=== PATIENT | female | born 1930 | race Caucasian/White ===

== ENCOUNTER 2018-02-11 10:42 | Inpatient (IN) ==
[2018-02-11] MEDS ORDERED: predniSONE 20 MG TABLET PO ONE (10:59)
[2018-02-11] MEDS ORDERED: Ipratropium/Albuterol Neb 3 ML IH ONE (10:59)
--- NOTE | 2018-02-11 11:01 | Emergency Department Note ---
Disposition Clinical Impression: NSTEMI (non-ST elevated myocardial infarction), CESAR (acute kidney injury) Dyspnea Qualifiers: Dyspnea type: unspecified Qualified Code(s): R06.00 - Dyspnea, unspecified Acute exacerbation of CHF (congestive heart failure) Qualifiers: Heart failure type: unspecified Qualified Code(s): I50.9 - Heart failure, unspecified Disposition: Admitted As Inpatient Condition: Undetermined Referrals: Marjorie Robles [Primary Care Provider] - Forms: ED Satisfaction Letter Time of Disposition: 14:54 SOB HPI - General Chief Complaint: ED Shortness of Breath/Dyspnea Stated Complaint: FELECIA Time Seen by Provider: 02/11/18 10:56 Source: patient Mode of arrival: private vehicle Limitations: no limitations Nursing Notes Reviewed: Yes Vital Signs Reviewed: Yes - History of Present Illness 88-year-old female with recent CVA arrives to the emergency department after being discharged from [facility] as a rehabilitation. The patient was doing well or able to ambulate without difficulty. She states that over the course the past 3 days she has been more short of breath, cough, upper respiratory infection like symptoms the point where she has been unable to move around easily. Patient has also made comments that she wanted to kill herself. She is maybe is comes to family members who performed care team. The patient denies any other complaints at this time. Family is very concerned because she is not able to eat very well. They have been substituting food with insurer. She has been able to swallow this and take her medicines. She denies any other complaints. - Related Data Home Medications Medication Instructions Recorded Confirmed Aspirin [Lo-Dose Aspirin EC] 81 mg PO DAILY 12/29/17 02/11/18 Atorvastatin Calcium [Lipitor] 20 mg PO QPM 12/29/17 02/11/18 Clopidogrel [Plavix] 75 mg PO DAILY 12/29/17 02/11/18 Ferrous Sulfate [Iron] 325 mg PO DAILY 12/29/17 02/11/18 Levothyroxine Sodium [Levoxyl] 50 mcg PO DAILY 12/29/17 02/11/18 Metoprolol [Lopressor] 25 mg PO BID 12/29/17 02/11/18 Omeprazole [PriLOSEC] 40 mg PO DAILY 12/29/17 02/11/18 Oxybutynin [Ditropan] 5 mg PO DAILY 12/29/17 02/11/18 Allergies Allergy/AdvReac Type Severity Reaction Status Date / Time Penicillins [PCN] Allergy Rash Verified 12/29/17 10:56 All systems ED: reviewed and negative except as stated. Constitutional: Reports: weakness. Denies: fever, chills ENT ED: Reports: congestion. Denies: ear pain, throat pain Cardiovascular: Reports: dyspnea on exertion. Denies: chest pain, orthopnea, edema, syncope Respiratory: Reports: cough, dyspnea, wheezes, sputum production. Denies: hemoptysis, stridor Gastrointestinal: Denies: abdominal pain, nausea, vomiting, diarrhea, constipation, hematemesis, melena, hematochezia Genitourinary: Reports: dysuria. Denies: urgency Musculoskeletal: Denies: back pain, neck pain, arthralgia, myalgia Integumentary: Denies: rash Neurological: Reports: weakness. Denies: headache, numbness, paresthesias, confusion, abnormal gait, vertigo Past Medical History - Past Medical History Attestation: Yes The following information was validated with the patient. Source: patient, obtained from family Medical history: Reports: CVA, GERD, hyperlipidemia, hypertension, myocardial infarction, thyroid disease Surgical history: Reports: non-contributory Psychiatric history: Reports: no psych history - Social History Smoking Status: Never smoker Smokeless Tobacco Status: No Alcohol use: Reports: none Drug use: Reports: none Physical Exam - General Limitations: no limitations General appearance: alert, in no apparent distress - Head Head exam: atraumatic, normocephalic, normal inspection - Eye Eye exam: Present: normal appearance, PERRL, EOMI - ENT ENT exam: normal exam, normal oropharynx, mucous membranes moist - Neck Neck exam: Present: normal inspection, full ROM, trachea midline - Chest Chest inspection: Present: normal inspection, symmetric chest wall rise - Respiratory Respiratory exam: Present: wheezes (bilaterally) - Cardiovascular Cardiovascular exam: Present: regular rate, normal rhythm, normal heart sounds - Abdominal Exam Abdominal exam: Present: soft, Non-Tender. Absent: tenderness, distention, guarding, rebound, rigidity - Extremities Exam Extremities exam: Present: normal inspection, full ROM. Absent: tenderness, pedal edema - Neurological Exam Neurological exam: Present: alert, oriented X3 - Skin Skin exam: Present: warm, dry, intact, normal color Course - Consultations Consultation #1: Spoke with Dr. Reno who had no further recommendations at this time. He did however with recommended that we admit the patient to the intensive is given the complex nature of what is going on currently. Time: 14:55 Vital Signs Temperature 98.9 F 02/11/18 10:59 Pulse Rate 101 02/11/18 10:59 Respiratory Rate 28 02/11/18 10:59 Blood Pressure 88/72 02/11/18 10:59 O2 Sat by Pulse Oximetry 94 02/11/18 10:59 Temperature 98.9 F 02/11/18 10:59 Pulse Rate 103 02/11/18 13:33 Respiratory Rate 20 02/11/18 13:33 Blood Pressure 113/63 02/11/18 13:33 O2 Sat by Pulse Oximetry 100 02/11/18 13:33 Oxygen Delivery Oxygen Delivery Bipap Shortness of Breath/Dyspnea - MDM Narrative Medical decision making narrative: Patient's x-ray demonstrates pulmonary edema bilaterally. She was placed on BiPAP. In addition the patient's troponin is elevated at 1.85. She was given aspirin started a heparin drip. She denies any black or bloody stools. The patient's EKG demonstrates no acute process. The patient was also administered multiple doses of IV fluid at 250 mL IVF to prevent fluid overload. Patient also had an CESAR as well. The patient was administered vancomycin and Zosyn. We will admit the patient to the hospital at this time. Respiratory status is improved after being placed on BiPAP. She is resting comfortably in the room speaking full sentences. Patient denies any other complaints at this time. Accepted by the assistant press operator offset, Dr. Villalta. - Lab Data Lab results reviewed: Yes I reviewed the patient's lab results. Result diagrams: 02/11/18 13:09 02/11/18 13:09 Lab Results 02/11/18 02/11/18 02/11/18 Range/Units 11:11 12:05 13:09 WBC 12.8 H (4.3-11.1) K/mcL RBC 3.81 L (3.82-4.97) M/mcL Hgb 11.1 L (11.5-15.4) g/dL Hct 34.3 L (35.3-44.9) % MCV 90.0 (83.0-100.0) fL MCH 29.1 (28.0-33.3) pg MCHC 32.4 (31.6-35.5) g/dL RDW 14.8 H (11.5-14.5) % Plt Count 251 (140-400) K/mcL MPV 10.8 (9.4-12.4) fL Immature Gran % 1.1 (0-4) % Seg Neutrophils % 85.0 % Lymphocytes % 7.2 % Monocytes % 6.5 % Eosinophils % 0.0 % Basophils % 0.2 % Neutrophils # 10.9 H (1.6-8.9) K/mcL Lymphocytes # 0.9 (0.6-4.6) K/mcL Monocytes # 0.8 (0.0-1.3) K/mcL Eosinophils # 0.0 (0.0-0.6) K/mcL Basophils # 0.0 (0.0-0.2) K/mcL Nucleated RBCs/100 WBC 0.4 H (0) /100 WBC PT (9.4-12.1) Seconds INR Sodium (136-145) mEq/L Potassium (3.5-5.1) mEq/L Chloride (98-107) mEq/L Carbon Dioxide (23-29) mEq/L BUN (8-23) mg/dL Creatinine (0.60-1.20) mg/dL Est GFR ( Amer) (> 60) Est GFR (Non-Af Amer) (> 60) BUN/Creatinine Ratio (6-26) Glucose (70-105) mg/dL POC Glucose 134 H (70-99) mg/dL Calculated Osmolality (280-300) Lactic Acid (0.5-2.2) mmol/L Calcium (8.6-10.3) mg/dL Troponin I (< 0.04) ng/mL Urine Color Yellow (Yellow) Urine Clarity Clear (Clear) Urine pH 6.0 (5.0-8.0) pH Units Ur Specific [place] 1.025 (1.010-1.025) Urine Protein 30 H (Neg-Trace) mg/dL Urine Glucose (UA) Normal (Normal) mg/dL Urine Ketones Negative (Negative) mg/dL Urine Blood Negative (Negative) Urine Nitrite Negative (Negative) Urine Bilirubin Negative (Negative) Urine Urobilinogen Normal (Normal) mg/dL Ur Leukocyte Esterase Negative (Negative) Urine Microscopic RBC 0-3 (0-3) per hpf Urine Microscopic WBC 3-5 H (0-3) per hpf Ur Squamous Epith Cells Many H (None-Few) per lpf Urine Bacteria None Seen (None-Few) per hpf Hyaline Casts None Seen (None-Few) per lpf Ur Culture Indicated? NO (NO) 02/11/18 02/11/18 02/11/18 Range/Units 13:09 13:09 13:09 WBC (4.3-11.1) K/mcL RBC (3.82-4.97) M/mcL Hgb (11.5-15.4) g/dL Hct (35.3-44.9) % MCV (83.0-100.0) fL MCH (28.0-33.3) pg MCHC (31.6-35.5) g/dL RDW (11.5-14.5) % Plt Count (140-400) K/mcL MPV (9.4-12.4) fL Immature Gran % (0-4) % Seg Neutrophils % % Lymphocytes % % Monocytes % % Eosinophils % % Basophils % % Neutrophils # (1.6-8.9) K/mcL Lymphocytes # (0.6-4.6) K/mcL Monocytes # (0.0-1.3) K/mcL Eosinophils # (0.0-0.6) K/mcL Basophils # (0.0-0.2) K/mcL Nucleated RBCs/100 WBC (0) /100 WBC PT 14.3 H (9.4-12.1) Seconds INR 1.3 Sodium 135 L (136-145) mEq/L Potassium 3.6 (3.5-5.1) mEq/L Chloride 102 (98-107) mEq/L Carbon Dioxide 18 L (23-29) mEq/L BUN 65 H (8-23) mg/dL Creatinine 1.41 H (0.60-1.20) mg/dL Est GFR ( Amer) 43 L (> 60) Est GFR (Non-Af Amer) 35 L (> 60) BUN/Creatinine Ratio 46 H (6-26) Glucose 127 H (70-105) mg/dL POC Glucose (70-99) mg/dL Calculated Osmolality 300 (280-300) Lactic Acid 3.4 H (0.5-2.2) mmol/L Calcium 9.3 (8.6-10.3) mg/dL Troponin I 1.85 H* (< 0.04) ng/mL Urine Color (Yellow) Urine Clarity (Clear) Urine pH (5.0-8.0) pH Units Ur Specific [place] (1.010-1.025) Urine Protein (Neg-Trace) mg/dL Urine Glucose (UA) (Normal) mg/dL Urine Ketones (Negative) mg/dL Urine Blood (Negative) Urine Nitrite (Negative) Urine Bilirubin (Negative) Urine Urobilinogen (Normal) mg/dL Ur Leukocyte Esterase (Negative) Urine Microscopic RBC (0-3) per hpf Urine Microscopic WBC (0-3) per hpf Ur Squamous Epith Cells (None-Few) per lpf Urine Bacteria (None-Few) per hpf Hyaline Casts (None-Few) per lpf Ur Culture Indicated? (NO) - Radiology Data Radiology results reviewed: Yes I reviewed the patient's radiology results. Chest X-Ray 02/11/18 10:57 IMPRESSION: 1. Interval worsening of bibasilar opacities, bilateral effusions, and pulmonary edema. 2. Low lung volumes. D/ / 02/11/2018 11:42:31 Natali Ortiz MD / [email or web address] Interpreting Provider: Natali Ortiz MD - EKG Data EKG attestation: Yes I reviewed and interpreted this EKG. EKG results narrative: Heart rate 89 beats for minute. Normal sinus rhythm. No ST elevation or ST depression noted. PVCs noted. EKG overall similar to EKG of from 12/29/2017.
[2018-02-11] MEDS ORDERED: 0.9 % Sodium Chloride 1,000 ML IVC ONE (11:15)
[2018-02-11] MEDS ORDERED: methylPREDNISolone 125 MG/2 ML VIAL IVP ONE (11:17)
[2018-02-11] MEDS ORDERED: 0.9 % Sodium Chloride 500 ML IVC ONE (11:26)
[2018-02-11] MEDS ORDERED: Cefepime HCl 1,000 MG in Water for inj. (sterile) 20 ML 10 ML IVP STA (11:30)
[2018-02-11] MEDS ORDERED: 0.9 % Sodium Chloride 250 ML IVC ONE ×2 (11:31→14:02)
--- NOTE | 2018-02-11 11:32 | Emergency Department Note ---
Disposition Clinical Impression: Dyspnea Disposition: Still a Patient Referrals: Marjorie Robles [Primary Care Provider] - Forms: ED Satisfaction Letter General Adult HPI - General Chief complaint: ED Shortness of Breath/Dyspnea Stated complaint: FELECIA Time Seen by Provider: 02/11/18 10:56 Source: patient Mode of arrival: private vehicle Limitations: no limitations Nursing Notes Reviewed: Yes Vital Signs Reviewed: Yes - History of Present Illness Pain Scale: 0 - Related Data Home Medications Medication Instructions Recorded Confirmed Aspirin [Lo-Dose Aspirin EC] 81 mg PO DAILY 12/29/17 02/11/18 Atorvastatin Calcium [Lipitor] 20 mg PO QPM 12/29/17 02/11/18 Clopidogrel [Plavix] 75 mg PO DAILY 12/29/17 02/11/18 Ferrous Sulfate [Iron] 325 mg PO DAILY 12/29/17 02/11/18 Levothyroxine Sodium [Levoxyl] 50 mcg PO DAILY 12/29/17 02/11/18 Metoprolol [Lopressor] 25 mg PO BID 12/29/17 02/11/18 Omeprazole [PriLOSEC] 40 mg PO DAILY 12/29/17 02/11/18 Oxybutynin [Ditropan] 5 mg PO DAILY 12/29/17 02/11/18 Allergies Allergy/AdvReac Type Severity Reaction Status Date / Time Penicillins [PCN] Allergy Rash Verified 12/29/17 10:56 Constitutional: Reports: weakness. Denies: fever, chills ENT ED: Reports: congestion. Denies: ear pain, throat pain Cardiovascular: Reports: dyspnea on exertion. Denies: chest pain, orthopnea, edema, syncope Respiratory: Reports: cough, dyspnea, wheezes, sputum production. Denies: hemoptysis, stridor Gastrointestinal: Denies: abdominal pain, nausea, vomiting, diarrhea, constipation, hematemesis, melena, hematochezia Genitourinary: Reports: dysuria. Denies: urgency Musculoskeletal: Denies: back pain, neck pain, arthralgia, myalgia Integumentary: Denies: rash Neurological: Reports: weakness. Denies: headache, numbness, paresthesias, confusion, abnormal gait, vertigo Past Medical History - Past Medical History Medical history: Reports: CVA, GERD, hyperlipidemia, hypertension, myocardial infarction, thyroid disease Surgical history: Reports: non-contributory Psychiatric history: Reports: no psych history - Social History Smoking Status: Never smoker Smokeless Tobacco Status: No Alcohol use: Reports: none Drug use: Reports: none Physical Exam - General Limitations: no limitations General appearance: alert, in no apparent distress Course Vital Signs Temperature 98.9 F 02/11/18 10:59 Pulse Rate 101 02/11/18 10:59 Respiratory Rate 28 02/11/18 10:59 Blood Pressure 88/72 02/11/18 10:59 O2 Sat by Pulse Oximetry 94 02/11/18 10:59 Temperature 98.9 F 02/11/18 10:59 Pulse Rate 103 02/11/18 13:33 Respiratory Rate 20 02/11/18 13:33 Blood Pressure 113/63 02/11/18 13:33 O2 Sat by Pulse Oximetry 100 02/11/18 13:33 Oxygen Delivery Oxygen Delivery Bipap Medical Decision Making - MDM Narrative Medical decision making narrative: This documentation is done with the assistance of Dragon dictation. Despite efforts made to ensure accuracy, there may be inaccuracies in campaign director or spelling and typographical errors. Patient seen and evaluated by Dr. Dickson and myself. Patient just L senior care for CVA symptoms. She was doing better. And now is coughing and history of fever. Possible healthcare acquired pneumonia. Family states they have also had some suicidal ideations while she was in health care facility. She is back home now. While medical social consultant speak with family. She will need medical admission and may be psychiatry consult. We will start her on antibiotic for healthcare acquired pneumonia. And finish workup. Chest X-Ray 02/11/18 10:57 IMPRESSION: 1. Interval worsening of bibasilar opacities, bilateral effusions, and pulmonary edema. 2. Low lung volumes. D/ / 02/11/2018 11:42:31 Natali Ortiz MD / [email or web address] Interpreting Provider: Natali Ortiz MD 1150 hrs. Patient does meet SIRS criteria. These could be effusions on her chest x-ray versus pneumonia. We will treat her as healthcare acquired pneumonia. We are and I have a midline placed due to poor vascular access. She will then need admitted. 1336 hrs.: Patient's CBC is back with mild leukocytosis. Chemistry still pending as there is a delay in getting her labs. We started her on treatment for pneumonia. She is stable at this time and will be admitted. Critical care time excluding any separately billable procedures is 20 minutes - Lab Data Result diagrams: 02/11/18 13:09 Lab Results 02/11/18 02/11/18 02/11/18 Range/Units 11:11 12:05 13:09 WBC 12.8 H (4.3-11.1) K/mcL RBC 3.81 L (3.82-4.97) M/mcL Hgb 11.1 L (11.5-15.4) g/dL Hct 34.3 L (35.3-44.9) % MCV 90.0 (83.0-100.0) fL MCH 29.1 (28.0-33.3) pg MCHC 32.4 (31.6-35.5) g/dL RDW 14.8 H (11.5-14.5) % Plt Count 251 (140-400) K/mcL MPV 10.8 (9.4-12.4) fL Immature Gran % 1.1 (0-4) % Seg Neutrophils % 85.0 % Lymphocytes % 7.2 % Monocytes % 6.5 % Eosinophils % 0.0 % Basophils % 0.2 % Neutrophils # 10.9 H (1.6-8.9) K/mcL Lymphocytes # 0.9 (0.6-4.6) K/mcL Monocytes # 0.8 (0.0-1.3) K/mcL Eosinophils # 0.0 (0.0-0.6) K/mcL Basophils # 0.0 (0.0-0.2) K/mcL Nucleated RBCs/100 WBC 0.4 H (0) /100 WBC POC Glucose 134 H (70-99) mg/dL Urine Color Yellow (Yellow) Urine Clarity Clear (Clear) Urine pH 6.0 (5.0-8.0) pH Units Ur Specific [place] 1.025 (1.010-1.025) Urine Protein 30 H (Neg-Trace) mg/dL Urine Glucose (UA) Normal (Normal) mg/dL Urine Ketones Negative (Negative) mg/dL Urine Blood Negative (Negative) Urine Nitrite Negative (Negative) Urine Bilirubin Negative (Negative) Urine Urobilinogen Normal (Normal) mg/dL Ur Leukocyte Esterase Negative (Negative) Urine Microscopic RBC 0-3 (0-3) per hpf Urine Microscopic WBC 3-5 H (0-3) per hpf Ur Squamous Epith Cells Many H (None-Few) per lpf Urine Bacteria None Seen (None-Few) per hpf Hyaline Casts None Seen (None-Few) per lpf Ur Culture Indicated? NO (NO) Attestation Statement - Attestation Attestation: I examined this patient and my medical decision-making was reviewed with the Resident Physician. I agree with the documented findings, disposition and treatment plan as described except to the extent set forth below. Patient seen and evaluated by Dr. Dickson and myself, agree with his evaluation and management plan, supervised the care the patient's stay.
[2018-02-11 12:27] LABS: Bilirubin,Urine Negative (Negative); Blood,Urine Negative (Negative); Color,Urine Yellow (Yellow); Glucose,Urine (UA) Normal (Normal); Ketones,Urine Negative (Negative); Leukocyte Esterase,Urine Negative (Negative); Nitrite,Urine Negative (Negative); Protein,Urine 30 mg/dL (Neg-Trace); Specific Gravity,Urine 1.025 (1.010-1.025); Urobilinogen,Urine Normal (Normal)
[2018-02-11 12:30] LABS: Bacteria,Urine None Seen per hpf (None-Few); Hyaline Casts,Urine None Seen per lpf (None-Few); RBC,Urine 0-3 per hpf (0-3); Squamous Epithelial Cell,Urine Many per lpf (None-Few)
[2018-02-11 12:31] LABS: Clarity,Urine Clear (Clear)
--- NOTE | 2018-02-11 13:29 | Emergency Department Note ---
Disposition Clinical Impression: Dyspnea Qualifiers: Dyspnea type: unspecified Qualified Code(s): R06.00 - Dyspnea, unspecified Disposition: Still a Patient Referrals: Marjorie Robles [Primary Care Provider] - Forms: ED Satisfaction Letter General Adult HPI - General Chief complaint: ED Shortness of Breath/Dyspnea Stated complaint: FELECIA Time Seen by Provider: 02/11/18 10:56 Source: patient Mode of arrival: private vehicle Limitations: no limitations Nursing Notes Reviewed: Yes Vital Signs Reviewed: Yes - History of Present Illness Pain Scale: 0 - Related Data Home Medications Medication Instructions Recorded Confirmed Aspirin [Lo-Dose Aspirin EC] 81 mg PO DAILY 12/29/17 02/11/18 Atorvastatin Calcium [Lipitor] 20 mg PO QPM 12/29/17 02/11/18 Clopidogrel [Plavix] 75 mg PO DAILY 12/29/17 02/11/18 Ferrous Sulfate [Iron] 325 mg PO DAILY 12/29/17 02/11/18 Levothyroxine Sodium [Levoxyl] 50 mcg PO DAILY 12/29/17 02/11/18 Metoprolol [Lopressor] 25 mg PO BID 12/29/17 02/11/18 Omeprazole [PriLOSEC] 40 mg PO DAILY 12/29/17 02/11/18 Oxybutynin [Ditropan] 5 mg PO DAILY 12/29/17 02/11/18 Allergies Allergy/AdvReac Type Severity Reaction Status Date / Time Penicillins [PCN] Allergy Rash Verified 12/29/17 10:56 Constitutional: Reports: weakness. Denies: fever, chills ENT ED: Reports: congestion. Denies: ear pain, throat pain Cardiovascular: Reports: dyspnea on exertion. Denies: chest pain, orthopnea, edema, syncope Respiratory: Reports: cough, dyspnea, wheezes, sputum production. Denies: hemoptysis, stridor Gastrointestinal: Denies: abdominal pain, nausea, vomiting, diarrhea, constipation, hematemesis, melena, hematochezia Genitourinary: Reports: dysuria. Denies: urgency Musculoskeletal: Denies: back pain, neck pain, arthralgia, myalgia Integumentary: Denies: rash Neurological: Reports: weakness. Denies: headache, numbness, paresthesias, confusion, abnormal gait, vertigo Past Medical History - Past Medical History Medical history: Reports: CVA, GERD, hyperlipidemia, hypertension, myocardial infarction, thyroid disease Surgical history: Reports: non-contributory Psychiatric history: Reports: no psych history - Social History Smoking Status: Never smoker Smokeless Tobacco Status: No Alcohol use: Reports: none Drug use: Reports: none Physical Exam - General Limitations: no limitations General appearance: alert, in no apparent distress Course Vital Signs Temperature 98.9 F 02/11/18 10:59 Pulse Rate 101 02/11/18 10:59 Respiratory Rate 28 02/11/18 10:59 Blood Pressure 88/72 02/11/18 10:59 O2 Sat by Pulse Oximetry 94 02/11/18 10:59 Temperature 98.9 F 02/11/18 10:59 Pulse Rate 103 02/11/18 13:33 Respiratory Rate 20 02/11/18 13:33 Blood Pressure 113/63 02/11/18 13:33 O2 Sat by Pulse Oximetry 100 02/11/18 13:33 Oxygen Delivery Oxygen Delivery Bipap Procedures - Ultrasound-Other Narrative: US STUDY: Cardiac ED limited INDICATION: Shortness of breath Discussion of risks, benefits and alternatives with pateint and concsent verbally obtained prior to study. Time out Performed. FINDINGS: A parasternal long axis view was obtained, this demonstrated mild to moderate decrease in cardiac contractility, with the anterior leaflet minimally contacting the septal wall and the mitral valve, there appears to be some evidence of global dyskinesis, no evidence of right ventricular strain. IMPRESSON: Possible decreased cardiac contractility and cardiac function, no evidence of pericardial effusion, recommend formal ultrasound study Performed and Interpretted by myself Dr Acuna Resident, Attending Physician Dr. Trent Medical Decision Making - [facility] Narrative Medical decision making narrative: Ultrasound procedure note only, please see resident/AICHA/attending note for history, ROS, physical exam, medical decision making and plan. - Lab Data Result diagrams: 02/11/18 13:09 Lab Results 02/11/18 02/11/18 02/11/18 Range/Units 11:11 12:05 13:09 WBC 12.8 H (4.3-11.1) K/mcL RBC 3.81 L (3.82-4.97) M/mcL Hgb 11.1 L (11.5-15.4) g/dL Hct 34.3 L (35.3-44.9) % MCV 90.0 (83.0-100.0) fL MCH 29.1 (28.0-33.3) pg MCHC 32.4 (31.6-35.5) g/dL RDW 14.8 H (11.5-14.5) % Plt Count 251 (140-400) K/mcL MPV 10.8 (9.4-12.4) fL Immature Gran % 1.1 (0-4) % Seg Neutrophils % 85.0 % Lymphocytes % 7.2 % Monocytes % 6.5 % Eosinophils % 0.0 % Basophils % 0.2 % Neutrophils # 10.9 H (1.6-8.9) K/mcL Lymphocytes # 0.9 (0.6-4.6) K/mcL Monocytes # 0.8 (0.0-1.3) K/mcL Eosinophils # 0.0 (0.0-0.6) K/mcL Basophils # 0.0 (0.0-0.2) K/mcL Nucleated RBCs/100 WBC 0.4 H (0) /100 WBC POC Glucose 134 H (70-99) mg/dL Urine Color Yellow (Yellow) Urine Clarity Clear (Clear) Urine pH 6.0 (5.0-8.0) pH Units Ur Specific [place] 1.025 (1.010-1.025) Urine Protein 30 H (Neg-Trace) mg/dL Urine Glucose (UA) Normal (Normal) mg/dL Urine Ketones Negative (Negative) mg/dL Urine Blood Negative (Negative) Urine Nitrite Negative (Negative) Urine Bilirubin Negative (Negative) Urine Urobilinogen Normal (Normal) mg/dL Ur Leukocyte Esterase Negative (Negative) Urine Microscopic RBC 0-3 (0-3) per hpf Urine Microscopic WBC 3-5 H (0-3) per hpf Ur Squamous Epith Cells Many H (None-Few) per lpf Urine Bacteria None Seen (None-Few) per hpf Hyaline Casts None Seen (None-Few) per lpf Ur Culture Indicated? NO (NO)
[2018-02-11 13:33] LABS: Basophils % 0.2 %; Hematocrit 34.3 % (35.3-44.9); Hemoglobin 11.1 g/dL (11.5-15.4); Immature Granulocytes % 1.1 % (0-4); Lymphocytes # 0.9 K/mcL (0.6-4.6); Lymphocytes % 7.2 %; Mean Corpuscular HGB Conc 32.4 g/dL (31.6-35.5); Mean Corpuscular Hemoglobin 29.1 pg (28.0-33.3); Mean Platelet Volume 10.8 fL (9.4-12.4); Monocytes # 0.8 K/mcL (0.0-1.3); Monocytes % 6.5 %; Neutrophils # 10.9 K/mcL (1.6-8.9); Nucleated Red Blood Cells 0.4 /100 WBC (0); Platelet Count 251 K/mcL (140-400); Red Blood Count 3.81 M/mcL (3.82-4.97); Red Cell Distribution Width 14.8 % (11.5-14.5)
[2018-02-11 13:50] LABS: Calcium 9.3 mg/dL (8.6-10.3); Potassium 3.6 mEq/L (3.5-5.1)
[2018-02-11 13:52] LABS: Troponin I 1.85 ng/mL (< 0.04)
[2018-02-11] MEDS ORDERED: *HR* Heparin 5,000 UNIT/ML VIAL IVP ONE (14:02)
[2018-02-11] MEDS ORDERED: *HR* Heparin 5,000 UNIT/ML VIAL IVP PRN ×2 (14:02)
[2018-02-11] MEDS ORDERED: Aspirin 325 MG TABLET PO ONE (14:02)
[2018-02-11] MEDS ORDERED: Heparin 25,000 UNIT/500 ML D5W 25,000 UNIT/500 ML BAG IVC SCH (14:15)
--- NOTE | 2018-02-11 14:50 | Pulmonology History & Physical ---
<Chilo Villalta M - Last Filed: 02/11/18 16:07> Date of Encounter: 02/11/18 History of Present Illness HPI: Ms. Valencia is a 88 year old female Medications and Allergies Aspirin [Lo-Dose Aspirin EC] 81 mg PO DAILY 12/29/17 [History] Atorvastatin Calcium [Lipitor] 20 mg PO QPM 12/29/17 [History] Clopidogrel [Plavix] 75 mg PO DAILY 12/29/17 [History] Ferrous Sulfate [Iron] 325 mg PO DAILY 12/29/17 [History] Levothyroxine Sodium [Levoxyl] 50 mcg PO DAILY 12/29/17 [History] Metoprolol [Lopressor] 25 mg PO BID 12/29/17 [History] Omeprazole [PriLOSEC] 40 mg PO DAILY 12/29/17 [History] Oxybutynin [Ditropan] 5 mg PO DAILY 12/29/17 [History] 3 Allergy/AdvReac Type Severity Reaction Status Date / Time Penicillins [PCN] Allergy Rash Verified 12/29/17 10:56 All Systems: The remainder of the systems were reviewed and are negative Physical Examination Vital Signs: Vital Signs, Last 4 Hours Pulse Resp BP Pulse Ox 02/11/18 13:33 103 20 113/63 100 Results - Laboratory Findings CBC and BMP: 02/11/18 13:09 02/11/18 13:09 PT/INR, D-dimer PT 14.3 Seconds (9.4-12.1) H 02/11/18 13:09 Abnormal lab findings: Abnormal lab results WBC 12.8 K/mcL (4.3-11.1) H 02/11/18 13:09 RBC 3.81 M/mcL (3.82-4.97) L 02/11/18 13:09 Hgb 11.1 g/dL (11.5-15.4) L 02/11/18 13:09 Hct 34.3 % (35.3-44.9) L 02/11/18 13:09 RDW 14.8 % (11.5-14.5) H 02/11/18 13:09 Neutrophils # 10.9 K/mcL (1.6-8.9) H 02/11/18 13:09 Nucleated RBCs/100 WBC 0.4 /100 WBC (0) H 02/11/18 13:09 PT 14.3 Seconds (9.4-12.1) H 02/11/18 13:09 APTT 21.6 Seconds (26.0-36.0) L 02/11/18 13:09 Sodium 135 mEq/L (136-145) L 02/11/18 13:09 Carbon Dioxide 18 mEq/L (23-29) L 02/11/18 13:09 BUN 65 mg/dL (8-23) H 02/11/18 13:09 Creatinine 1.41 mg/dL (0.60-1.20) H 02/11/18 13:09 Est GFR ( Amer) 43 (> 60) L 02/11/18 13:09 Est GFR (Non-Af Amer) 35 (> 60) L 02/11/18 13:09 BUN/Creatinine Ratio 46 (6-26) H 02/11/18 13:09 Glucose 127 mg/dL (70-105) H 02/11/18 13:09 POC Glucose 134 mg/dL (70-99) H 02/11/18 11:11 Lactic Acid 4.4 mmol/L (0.5-2.2) H* 02/11/18 15:20 Troponin I 1.85 ng/mL (< 0.04) H* 02/11/18 13:09 Urine Protein 30 mg/dL (Neg-Trace) H 02/11/18 12:05 Urine Microscopic WBC 3-5 per hpf (0-3) H 02/11/18 12:05 Ur Squamous Epith Cells Many per lpf (None-Few) H 02/11/18 12:05 - Attending Attestation I examined this patient and my medical decision-making was reviewed with the Resident Physician. I agree with the documented findings, disposition and treatment plan as described except to the extent set forth below. Patient seen and examined. I was called by emergency room physician to evaluate this patient in the emergency room and admitted her to ICU. Patient's family at the bedside. Labs, radiology, chart personally reviewed. 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 Cardiovascular: Non-ST elevation MO and cardiology to see patient. Patient has multiple comorbidities. GI: Nutrition per dietary and GI prophylaxis per routine. Patient at risk of aspiration. Heme: DVT prophylaxis per routine ID: Continue antibiotics and plan to de-escalation Renal; urine out put and renal funtion reviewed Endorcine: blood glucose is monitored Lines: all lines checked and no evidence of infections Skin: skin care to prevent pressure ulcers per nursing routine care Patient has multiple comorbidities and her condition could deteriorate and she will be admitted to ICU. I spent 35 min of Critical Care time with this patient. It involved decision making of high complexity to assess, manipulate, and support vital organ system failure and/or to prevent further life threatening deterioration of the patient' s condition. The time involved in the performance of separately reportable procedures was not counted toward critical care time. <Anjel Bell - Last Filed: 02/11/18 16:20> Date of Encounter: 02/11/18 Time of Encounter: 14:51 Assessment and Plan (1) HCAP (healthcare-associated pneumonia) Current visit: Yes Status: Acute Clinical pneumonia as evidenced by cough, recent healthcare facility admission, leukocytosis, respiratory failure requiring BiPAP. Chest x-ray with pulmonary edema however potential superimposed infiltrate is also a possibility. She was recently at a senior living facility for rehabilitation. We will treat broad-spectrum vancomycin and cefepime. MRSA surveillance screen ordered. Influenza swab ordered. (2) Sepsis Current visit: Yes Status: Acute Patient meets 3 SIRS criteria upon arrival given tachycardia, tachypnea and leukocytosis. Etiology suspected to be respiratory in nature. Chest x-ray with pulmonary edema however unable to exclude superimposed infiltrate. Initial lactate of 3.4 which has worsened to 4.4 Received a total 1 L normal saline in the emergency department. An additional 25 g of albumin was added. She is normotensive with normal cap refill. We will hold on 30 mL/kg bolus as she is also suffering from pulmonary edema requiring noninvasive positive pressure ventilation. Continue broad-spectrum antibiotic coverage with vancomycin and cefepime. Influenza swab ordered. Qualifiers: Sepsis type: sepsis due to unspecified organism Qualified Code(s): A41.9 - Sepsis, unspecified organism (3) NSTEMI (non-ST elevated myocardial infarction) Current visit: Yes Status: Acute Initial presentation with troponin of 1.85 in the setting of renal insufficiency. EKG demonstrates a left bundle branch block which is chronic for the patient. Prior troponin levels have been normal. Previous echo earlier this year reviewed with a preserved ejection fraction of 65% with mild left ventricular diastolic dysfunction. Cardiology consultation ordered by the emergency department. Plan to continue trending troponins Heparin GTT ordered by emergency department (4) Acute respiratory failure Current visit: Yes Status: Acute Initial tachypnea requiring noninvasive positive pressure ventilation with improvement of her symptoms. Likely secondary to acute CHF exacerbation with superimposed respiratory illness. On low support settings of BiPAP 10/5 at 30% FiO2. Continue as tolerated. Qualifiers: Respiratory failure complication: unspecified whether with hypoxia or hypercapnia Qualified Code(s): J96.00 - Acute respiratory failure, unspecified whether with hypoxia or hypercapnia (5) Generalized weakness Current visit: No Status: Acute Multifactorial given her acute infectious process as well as pulmonary edema and prior CVA. (6) Lactic acidosis Current visit: Yes Status: Acute Initial lactic acid of 3.4 on arrival which worsened to 4.4 prior to admission. Suspect type a lactic acidosis in the setting of infectious etiology with initial hypotension upon arrival Patient responded well to initial IV fluids and was given 25 g of 25% albumin as well. We will continue to trend lactic acids. (7) Diabetes mellitus Current visit: No Status: Chronic Sliding scale insulin regimen with goal blood glucose less than 180. 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 (9) DVT prophylaxis Current visit: No Status: Acute Currently on heparin infusion History of Present Illness Chief complaint: NSTEMI HPI: Ms. Valencia is a 88 year old female with a prior medical history of CVA roughly 1 month ago, CAD status post stent roughly 10 years ago, diabetes who presented to the emergency department on 02/11/18 with a chief complaint of dyspnea. Symptoms progressing over the last 2-3 days. She was just recently discharged from a senior living facility after rehabilitation from her stroke. She was noted to be mildly tachycardic and hypotensive upon arrival. Chest x-ray demonstrates pulmonary edema. The patient was briefly placed on BiPAP with improvement of her symptoms however requested to be off for break. She reports some intermittent chest pain worse with breathing. He reports that she has had a cough ever since leaving her nursing facility last . No nausea vomiting or diarrhea. No sick contacts. Of note she was admitted roughly 1 month ago where she had a neurologic workup for stroke found to have a lacunar infarct on brain MRI. She was also evaluated by cardiology during that visit for bradycardia. She had an echo at that time showing a preserved ejection fraction of 65% with mild left ventricular diastolic dysfunction. At the time of evaluation she is on BiPAP at 10/5 with an FiO2 of 30%. Prior to evaluation cardiology was consulted and the patient is currently in line to start a heparin infusion once her coagulation studies are back. She did receive multiple 250ml normal saline boluses for initial hypotension. Although she meets sepsis criteria with concern for respiratory etiology she did not receive 30/kg as she is responsive to initial fluids and has no evidence of shock. Patient to be admitted to the ICU for close hemodynamic monitoring due to multiple comorbidities. I had a discussion with the patient and family regarding CODE STATUS. She has remarked that she is tired of being sick and would wants to let go however she does not seem to fully understand CODE STATUS and at this time is full code pending family discussion as well as palliative care consultation. Past Med Surg Social Fam HX - Past Medical History Attestation: Yes The following information was validated with the patient. Source: patient Medical history: CVA, GERD, hyperlipidemia, hypertension, myocardial infarction , thyroid disease Psychiatric history: no psych history - Past Surgical History Surgical History: non-contributory - Social History Smoking Status: Never smoker Smokeless Tobacco Status: No Alcohol use: none Drug use: none - Family History Mother Living Status: Hx Family Cardiac Disorders: Yes All Systems: The remainder of the systems were reviewed and are negative - Constitutional Constitutional: weakness, no fever(s) - Cardiovascular Cardiovascular: chest pain (Intermittently), dyspnea, dyspnea on exertion - Respiratory Respiratory: cough, dyspnea, dyspnea on exertion - Gastrointestinal Gastrointestinal: no abdominal pain, no nausea, no vomiting - Musculoskeletal Musculoskeletal: weakness Physical Examination Vital Signs: Vital Signs, Last 4 Hours Temp Pulse Resp BP Pulse Ox 02/11/18 13:33 103 20 113/63 100 02/11/18 11:48 34 99 02/11/18 11:21 26 106/82 99 02/11/18 11:18 22 94 02/11/18 10:59 98.9 F 101 28 88/72 94 General appearance: other (Mild distress on BiPAP.) Eyes: nonicteric ENT: other (BiPAP in place) Neck: supple Effort: mildly labored, other (Currently on BiPAP 10/5 at 30% FiO2 with coarse bilateral breath sounds with diminishment in the bases) Cardiovascular: regular rate and rhythm Gastrointestinal: soft, non-tender, non-distended Integumentary: normal Extremities: no cyanosis, edema (Minimal lower extremity edema), other ( Dorsalis pedis pulses 1/4. Cap Refill time less than 3 seconds.) Musculoskeletal: no deformities normal mental status, non-focal exam mood appropriate Results - Laboratory Findings CBC and BMP: 02/11/18 13:09 02/11/18 13:09 Abnormal lab findings: Abnormal lab results WBC 12.8 K/mcL (4.3-11.1) H 02/11/18 13:09 RBC 3.81 M/mcL (3.82-4.97) L 02/11/18 13:09 Hgb 11.1 g/dL (11.5-15.4) L 02/11/18 13:09 Hct 34.3 % (35.3-44.9) L 02/11/18 13:09 RDW 14.8 % (11.5-14.5) H 02/11/18 13:09 Neutrophils # 10.9 K/mcL (1.6-8.9) H 02/11/18 13:09 Nucleated RBCs/100 WBC 0.4 /100 WBC (0) H 02/11/18 13:09 Sodium 135 mEq/L (136-145) L 02/11/18 13:09 Carbon Dioxide 18 mEq/L (23-29) L 02/11/18 13:09 BUN 65 mg/dL (8-23) H 04/11/18 13:09 Creatinine 1.41 mg/dL (0.60-1.20) H 02/11/18 13:09 Est GFR ( Amer) 43 (> 60) L 02/11/18 13:09 Est GFR (Non-Af Amer) 35 (> 60) L 02/11/18 13:09 BUN/Creatinine Ratio 46 (6-26) H 02/11/18 13:09 Glucose 127 mg/dL (70-105) H 02/11/18 13:09 POC Glucose 134 mg/dL (70-99) H 02/11/18 11:11 Lactic Acid 3.4 mmol/L (0.5-2.2) H 02/11/18 13:09 Troponin I 1.85 ng/mL (< 0.04) H* 02/11/18 13:09 Urine Protein 30 mg/dL (Neg-Trace) H 02/11/18 12:05 Urine Microscopic WBC 3-5 per hpf (0-3) H 02/11/18 12:05 Ur Squamous Epith Cells Many per lpf (None-Few) H 02/11/18 12:05 - Diagnostic Findings Chest x-ray: report reviewed, image reviewed
[2018-02-11 14:52] LABS: INR 1.3; Prothrombin Time 14.3 Seconds (9.4-12.1)
[2018-02-11 14:55] LABS: Activated Partial Thrombo Time 21.6 Seconds (26.0-36.0)
[2018-02-11] MEDS ORDERED: Albumin 25% 25gram/100mL 25 GM/100 ML IV.SOLN IVPB ONE (15:59)
[2018-02-11] MEDS ORDERED: Naloxone 0.4 MG/ML INJ IVP PRN (16:04)
[2018-02-11] MEDS: Famotidine 20 MG/2 ML VIAL IVP SCH (21:59)
[2018-02-11] MEDS: Cefepime HCl 1,000 MG in Water for inj. (sterile) 20 ML 10 ML IVP SCH (23:37)
[2018-02-12 01:36] LABS: Basophils % 0.1 %; Hematocrit 32.6 % (35.3-44.9); Hemoglobin 10.3 g/dL (11.5-15.4); Immature Granulocytes % 0.7 % (0-4); Lymphocytes # 0.6 K/mcL (0.6-4.6); Lymphocytes % 6.1 %; Mean Corpuscular HGB Conc 31.6 g/dL (31.6-35.5); Mean Corpuscular Hemoglobin 29.1 pg (28.0-33.3); Mean Corpuscular Volume 92.1 fL (83.0-100.0); Mean Platelet Volume 10.6 fL (9.4-12.4); Monocytes # 0.2 K/mcL (0.0-1.3); Monocytes % 2.2 %; Neutrophils # 9.3 K/mcL (1.6-8.9); Nucleated Red Blood Cells 0.3 /100 WBC (0); Platelet Count 204 K/mcL (140-400); Red Blood Count 3.54 M/mcL (3.82-4.97); Red Cell Distribution Width 14.7 % (11.5-14.5); Segmented Neutrophils % 90.9 %
[2018-02-12 02:03] LABS: Calcium 8.7 mg/dL (8.6-10.3); Magnesium 2.2 mg/dL (1.6-2.6); Phosphorous 4.9 mg/dL (2.7-4.5); Potassium 3.5 mEq/L (3.5-5.1)
[2018-02-12 04:42] LABS: Activated Partial Thrombo Time 125.8 Seconds (26.0-36.0)
[2018-02-12 04:47] LABS: Heparin anti-factor XA UFH 0.72 IU/mL (0.30-0.70)
[2018-02-12] MEDS: Famotidine 20 MG/2 ML VIAL IVP SCH (05:01)
--- NOTE | 2018-02-12 06:52 | Pulmonology Progress Note ---
<PawanChilo M - Last Filed: 02/12/18 09:07> Date of Encounter: 02/12/18 Objective PUL Vital signs: Last Vital Signs Temp 97.5 F L 02/12/18 07:00 Pulse 89 02/12/18 08:00 Resp 22 02/12/18 08:00 BP 104/78 02/12/18 08:00 Pulse Ox 97 02/12/18 08:00 Results - Laboratory Findings CBC and BMP: 02/12/18 01:29 02/12/18 01:29 PT/INR, D-dimer PT 14.3 Seconds (9.4-12.1) H 02/11/18 13:09 Abnormal lab findings: Abnormal lab results RBC 3.54 M/mcL (3.82-4.97) L 02/12/18 01:29 Hgb 10.3 g/dL (11.5-15.4) L 02/12/18 01:29 Hct 32.6 % (35.3-44.9) L 02/12/18 01: RDW 14.7 % (11.5-14.5) H 02/12/18 01:29 Neutrophils # 9.3 K/mcL (1.6-8.9) H 02/12/18 01:29 Nucleated RBCs/100 WBC 0.3 /100 WBC (0) H 02/12/18 01:29 PT 14.3 Seconds (9.4-12.1) H 02/11/18 13:09 APTT 125.8 Seconds (26.0-36.0) H* 02/12/18 04:10 Heparin Anti-Xa, Unfract 0.72 IU/mL (0.30-0.70) H 02/12/18 04:10 Chloride 108 mEq/L (98-107) H 02/12/18 01:29 Carbon Dioxide 15 mEq/L (23-29) L 02/12/18 01:29 BUN 64 mg/dL (8-23) H 02/12/18 01:29 Creatinine 1.24 mg/dL (0.60-1.20) H 02/12/18 01:29 Est GFR ( Amer) 50 (> 60) L 02/12/18 01:29 Est GFR (Non-Af Amer) 41 (> 60) L 02/12/18 01:29 BUN/Creatinine Ratio 52 (6-26) H 02/12/18 01:29 Glucose 180 mg/dL (70-105) H 02/12/18 01:29 POC Glucose 180 mg/dL (70-99) H 02/11/18 21:34 Calculated Osmolality 307 (280-300) H 02/12/18 01:29 Lactic Acid 2.3 mmol/L (0.5-2.2) H 02/12/18 08:26 Phosphorus 4.9 mg/dL (2.7-4.5) H 02/12/18 01:29 Troponin I 1.64 ng/mL (< 0.04) H* 02/12/18 01:29 Urine Protein 30 mg/dL (Neg-Trace) H 02/11/18 12:05 Urine Microscopic WBC 3-5 per hpf (0-3) H 02/11/18 12:05 Ur Squamous Epith Cells Many per lpf (None-Few) H 02/11/18 12:05 - Microbiology Findings Microbiology Findings: Microbiology, Last 48 Hours 02/11/18 21:46 Influenza Types A,B Antigen (MAHESH) - Final Nasopharyngeal - Clinical Findings Intake & Output: Intake & Output 02/11/18 02/12/18 02/12/18 23:59 07:59 15:59 Intake Total 213 / 213 72 / 72 Output Total 1200 / 1200 100 / 100 0 / 0 Balance -987 / -987 -28 / -28 0 / 0 Weight 56.2 kg 56.2 kg Consult Discharge Plan - Plan Referrals: Marjorie Robles [Primary Care Provider] - - Attending Attestation I examined this patient and my medical decision-making was reviewed with the Resident Physician. I agree with the documented findings, disposition and treatment plan as described except to the extent set forth below. Patient seen and examined. Labs, radiology, chart personally reviewed. 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 Speech for swallowing evaluation Heme: DVT prophylaxis per routine ID: Continue antibiotics and plan to de-escalation Renal; urine out put and renal funtion reviewed Endorcine: blood glucose is monitored Lines: all lines checked and no evidence of infections Skin: skin care to prevent pressure ulcers per nursing routine care Patient with multiple comorbidities and can be transferred to [address]. <Anjel Bell - Last Filed: 02/12/18 10:35> Date of Encounter: 02/12/18 Time of Encounter: 07:38 Assessment and Plan (1) HCAP (healthcare-associated pneumonia) Current Visit: Yes Status: Acute Clinical pneumonia as evidenced by cough, recent healthcare facility admission, leukocytosis, respiratory failure requiring BiPAP. Chest x-ray with pulmonary edema however potential superimposed infiltrate is also a possibility. She was recently at a alf facility for rehabilitation. We will treat broad-spectrum vancomycin and cefepime. MRSA surveillance screen negative Influenza screen negative (2) Sepsis Current Visit: Yes Status: Acute Patient met 3 SIRS criteria upon arrival given tachycardia, tachypnea and leukocytosis. Etiology suspected to be respiratory in nature. Chest x-ray with pulmonary edema however unable to exclude superimposed infiltrate. Initial lactic acidosis has resolved Continue broad-spectrum antibiotic coverage with vancomycin and cefepime. Influenza negative. MRSA surveillance negative. Qualifiers: Sepsis type: sepsis due to unspecified organism Qualified Code(s): A41.9 - Sepsis, unspecified organism (3) NSTEMI (non-ST elevated myocardial infarction) Current Visit: Yes Status: Acute Initial presentation with troponin of 1.85 in the setting of renal insufficiency. Repeat troponins downtrending 1.60, 1.64 EKG demonstrates a left bundle branch block which is chronic for the patient. Prior troponin levels have been normal. Previous echo earlier this year reviewed with a preserved ejection fraction of 65% with mild left ventricular diastolic dysfunction. Cardiology consultation ordered by the emergency department. Repeat Echo ordered Resume ASA Heparin GTT ordered by emergency department (4) Acute respiratory failure Current Visit: Yes Status: Resolved Initial tachypnea requiring noninvasive positive pressure ventilation with improvement of her symptoms. Likely secondary to acute CHF exacerbation with superimposed respiratory illness. Off Bipap on 02/11 Nasal cannula 2L Qualifiers: Respiratory failure complication: unspecified whether with hypoxia or hypercapnia Qualified Code(s): J96.00 - Acute respiratory failure, unspecified whether with hypoxia or hypercapnia (5) Generalized weakness Current Visit: No Status: Acute Multifactorial given her acute infectious process as well as pulmonary edema and prior CVA. (6) Lactic acidosis Current Visit: Yes Status: Acute Initial lactic acid of 3.4 on arrival which worsened to 4.4 prior to admission. Downtrending, most recent 2.4 Suspect type a lactic acidosis in the setting of infectious etiology with initial hypotension upon arrival Patient responded well to initial IV fluids and was given 25 g of 25% albumin as well. We will continue to trend lactic acids. (7) Hyperglycemia Current Visit: Yes Status: Acute Glucose to 180 this morning. Likely secondary to steroid use. NPO Speech therapy consult d/t concern for difficulty with PO Add insulin SS for coverage (8) LBBB (left bundle branch block) Current Visit: No Status: Chronic Previous documentation of left bundle branch block. (9) DVT prophylaxis Current Visit: No Status: Acute Currently on heparin infusion Subjective Principal diagnosis: Sepsis, Acute respiratory failure, NSTEMI Interval history: In brief Ruthie is an 88-year-old female who was admitted on 02/11/18 for NSTEMI and clinical pneumonia. 02/12/18: Overnight patient improved. Able to be weaned off BiPAP to nasal cannula 2 L. She voices no complaints as of this morning. No family at bedside during evaluation. Troponin trended down from initial draw. She remains on heparin infusion. Objective PUL Vital signs: Last Vital Signs Temp 97.5 F L 02/12/18 04:48 Pulse 91 02/12/18 06:00 Resp 24 02/12/18 06:00 BP 101/60 02/12/18 06:00 Pulse Ox 97 02/12/18 06:00 General appearance: no acute distress Eyes: nonicteric Effort: normal Auscultation: bilateral: diminished breath sounds (in the bases) Cardiovascular: regular rate and rhythm Gastrointestinal: soft, non-tender, non-distended Integumentary: normal Extremities: no cyanosis Musculoskeletal: no deformities normal mental status mood appropriate Results - Laboratory Findings CBC and BMP: 02/12/18 01:29 02/12/18 01:29 PT/INR, D-dimer PT 14.3 Seconds (9.4-12.1) H 02/11/18 13:09 Abnormal lab findings: Abnormal lab results RBC 3.54 M/mcL (3.82-4.97) L 02/12/18 01:29 Hgb 10.3 g/dL (11.5-15.4) L 02/12/18 01:29 Hct 32.6 % (35.3-44.9) L 02/12/18 01:29 RDW 14.7 % (11.5-14.5) H 02/12/18 01:29 Neutrophils # 9.3 K/mcL (1.6-8.9) H 02/12/18 01:29 Nucleated RBCs/100 WBC 0.3 /100 WBC (0) H 02/12/18 01:29 PT 14.3 Seconds (9.4-12.1) H 02/11/18 13:09 APTT 125.8 Seconds (26.0-36.0) H* 02/12/18 04:10 Heparin Anti-Xa, Unfract 0.72 IU/mL (0.30-0.70) H 02/12/18 04:10 Chloride 108 mEq/L (98-107) H 02/12/18 01:29 Carbon Dioxide 15 mEq/L (23-29) L 02/12/18 01:29 BUN 64 mg/dL (8-23) H 02/12/18 01:29 Creatinine 1.24 mg/dL (0.60-1.20) H 02/12/18 01:29 Est GFR ( Amer) 50 (> 60) L 02/12/18 01:29 Est GFR (Non-Af Amer) 41 (> 60) L 02/12/18 01:29 BUN/Creatinine Ratio 52 (6-26) H 02/12/18 01:29 Glucose 180 mg/dL (70-105) H 02/12/18 01:29 POC Glucose 180 mg/dL (70-99) H 02/11/18 21:34 Calculated Osmolality 307 (280-300) H 02/12/18 01:29 Lactic Acid 2.4 mmol/L (0.5-2.2) H 02/12/18 01:29 Phosphorus 4.9 mg/dL (2.7-4.5) H 02/12/18 01:29 Troponin I 1.64 ng/mL (< 0.04) H* 02/12/18 01:29 Urine Protein 30 mg/dL (Neg-Trace) H 02/11/18 12:05 Urine Microscopic WBC 3-5 per hpf (0-3) H 02/11/18 12:05 Ur Squamous Epith Cells Many per lpf (None-Few) H 02/11/18 12:05 - Microbiology Findings Microbiology Findings: Microbiology, Last 48 Hours 02/11/18 21:46 Influenza Types A,B Antigen (MAHESH) - Final Nasopharyngeal - Clinical Findings Intake & Output: Intake & Output 02/11/18 02/11/18 02/12/18 15:59 23:59 07:59 Intake Total 213 / 213 72 / 72 Output Total 1200 / 1200 100 / 100 Balance -987 / -987 -28 / -28 Weight 56.2 kg 56.2 kg
[2018-02-12] MEDS ORDERED: Dextrose Gel 15 GM/37.5 ML TUBE PO PRN ×4 (07:44→12:43)
[2018-02-12] MEDS ORDERED: D5% in Water 1,000 ML IVC PRN ×2 (07:44→12:43)
[2018-02-12] MEDS ORDERED: *HR* Dextrose 50 % in Water (Syg) 50 ML SYRINGE IVP PRN ×2 (07:44→12:43)
--- NOTE | 2018-02-12 10:02 | Cardiology Consult Note ---
<WaiDulce - Last Filed: 02/12/18 10:13> Date of Encounter: 02/12/18 Time of Encounter: 08:30 Assessment and Plan (1) Sepsis Current Visit: Yes Status: Acute Per cardiology: -Sepsis due to pneumonia. -Management per primary service. Qualifiers: Sepsis type: sepsis due to unspecified organism Qualified Code(s): A41.9 - Sepsis, unspecified organism (2) HCAP (healthcare-associated pneumonia) Current Visit: Yes Status: Acute Per cardiology: -Pneumonia. -On ATB. -Management per primary service. (3) NSTEMI (non-ST elevated myocardial infarction) Current Visit: Yes Status: Acute Per cardiology: -Troponins 1.85, 1.6, 1.64 in the setting of pneumonia, sepsis. NSTEMI vs. demand ischemia. -Denies chest pain. -No acute ischemic ECG changes -TTE 12/2017 with LVEF 60-65%, mild concentric LVH, mild diastolic dysufnction, mild AR, mild TR, no segmental wall motion abnormalities. -On heparin drip. -Will check TTE. -Of note,code status DNR-CCA/DNI, consider ischemic evaluation, if patient agreeable. -Further recommendations pending TTE. -Cardiac rehab consult not appropriate at this time due, can consider pending testing. (5) History of coronary artery disease Current Visit: No Status: Chronic Per cardiology: -History of CAD s/p remote PCI. -On statin, heparin drip. -Not on beta kyle due to hypotension. -Will resume ASA 81mg daily. -Consider addition of beta kyle prior to discharge, if able. Discussion w patient/family: The assessment and plan as outlined above was discussed with the patient who expressed understanding and agreement. All questions were answered. Thank you for involving us in the care of your patient. Please call with any questions. Discussed and reviewed with . History of Present Illness Consult date: 02/11/18 Requesting physician: Rahul Reis Consult reason: NSTEMI Chief complaint: shortness of breath History of present illness: Ms. Valencia is a 88 year old female with a relevant past medical history of CAD s/ p remote PCI, recent CVA 12/2017, hyperlipidemia, HTN, GERD, thyroid disease. Patient presented to [facility] as recommended by PCP due to increased shortness of breath. Patient reports for the past one week has noticed increased shortness of breath, cough. Patient denies chest pain. Reports weakness. Past Med Surg Social Fam HX - Past Medical History Attestation: Yes The following information was validated with the patient. Source: patient, old records reviewed Medical history: CVA, GERD, hyperlipidemia, hypertension, myocardial infarction , thyroid disease Psychiatric history: no psych history - Past Surgical History Surgical History: non-contributory - Social History Smoking Status: Never smoker Smokeless Tobacco Status: No Alcohol use: none Drug use: none - Family History Mother Living Status: Hx Family Cardiac Disorders: Yes Medications and Allergies Aspirin [Lo-Dose Aspirin EC] 81 mg PO DAILY 12/29/17 [History] Atorvastatin Calcium [Lipitor] 20 mg PO QPM 12/29/17 [History] Clopidogrel [Plavix] 75 mg PO DAILY 12/29/17 [History] Ferrous Sulfate [Iron] 325 mg PO DAILY 12/29/17 [History] Levothyroxine Sodium [Levoxyl] 50 mcg PO DAILY 12/29/17 [History] Metoprolol [Lopressor] 25 mg PO BID 12/29/17 [History] Omeprazole [PriLOSEC] 40 mg PO DAILY 12/29/17 [History] Oxybutynin [Ditropan] 5 mg PO DAILY 12/29/17 [History] 3 Allergy/AdvReac Type Severity Reaction Status Date / Time Penicillins [PCN] Allergy Rash Verified 12/29/17 10:56 All Systems Review: The remainder of the systems were reviewed and are negative - Constitutional Constitutional: weakness - Cardiovascular Cardiovascular: as per HPI, dyspnea at rest, dyspnea on exertion - Respiratory Respiratory: cough Physical Examination Vital Signs, Last 4 Hours Temp Pulse Resp BP Pulse Ox 02/12/18 09:00 80 24 89/69 95 02/12/18 08:00 89 22 104/78 97 02/12/18 07:30 89 02/12/18 07:00 97.5 F L 88 26 105/60 100 General: Conversant, No Apparent Distress HEENT: Atraumatic, Normocephaly, Mucus Membranes Moist Neck: No JVD, Normal carotid pulses Cardiac: Reg Rate and Rhythm, Normal S1 and S2, No Murmur Lungs: Other (Lung sounds diminished to bilateral lung bases. Inspiratory wheezes noted. ) Neuro: Alert and responsive, No focal deficits noted Abdomen: Soft, Non-Tender Skin: No rashes noted on visualized skin Musculoskeletal: No Chest Wall Tenderness Extremities: No Clubbing, No Cyanosis, No Edema, Normal Pulses Results 02/12/18 01:29 02/12/18 01:29 Lab Results Impressions Chest X-Ray 02/11/18 10:57 IMPRESSION: 1. Interval worsening of bibasilar opacities, bilateral effusions, and pulmonary edema. 2. Low lung volumes. D/ / 02/11/2018 11:42:31 Natali Ortiz MD / [email or web address] Interpreting Provider: Natali Ortiz MD Active Medications Atorvastatin Calcium (Lipitor) 20 mg PO QPM RAMY Stop: 08/13/18 18:01 Last Admin: 02/11/18 22:00 Dose: 20 mg Dextrose/Water (Dextrose 50% (Syg)) 25 ml IVP AD PRN PRN Reason: Hypoglycemia Stop: 08/14/18 07:45 Ferrous Sulfate (Ferrous Sulfate) 325 mg PO DAILY RAMY Stop: 08/14/18 09:01 Last Admin: 02/12/18 08:28 Dose: 325 mg Glucagon (Glucagen) 1 mg IM ONCE PRN PRN Reason: Hypoglycemia Stop: 08/14/18 07:45 Glucose (Gluctose) 15 gm PO ONCE PRN PRN Reason: Hypoglycemia Stop: 08/14/18 07:45 Glucose (Gluctose) 30 gm PO ONCE PRN PRN Reason: Hypoglycemia Stop: 08/14/18 07:45 Heparin Sodium (Porcine) (Heparin) 3,400 unit 60 unit/kg (3400 unit) IVP Q6HR PRN PRN Reason: SEE COMMENTS Stop: 08/13/18 14:03 Heparin Sodium (Porcine) (Heparin) 1,700 unit 30 unit/kg (1700 unit) IVP Q6H PRN PRN Reason: SEE COMMENTS Stop: 08/13/18 14:03 Heparin Sodium/Dextrose (Heparin 25,000 Unit/500 Ml D5w) 25,000 unit in 500 mls @ 13.608 mls/hr IVC .Q24H RAMY; 12 UNIT/KG/HR PRN Reason: Protocol Stop: 08/13/18 14:16 Last Titration: 02/12/18 06:08 Dose: 9.34 unit/kg/hr, 10.6 mls/hr Cefepime HCl 1,000 mg/ Sterile (Water) 10 mls @ 150 mls/hr IVP Q12H RAMY Stop: 08/13/18 23:31 Last Infusion: 02/11/18 23:42 Dose: Infused Dextrose (Dextrose 5%) 1,000 mls @ 100 mls/hr IVC .Q10H PRN PRN Reason: HYPOGLYCEMIA Stop: 08/14/18 07:45 Insulin Human Lispro (Humalog) 0 units SQ Q6HR RAMY PRN Reason: Protocol Stop: 08/14/18 12:01 Levothyroxine Sodium (Synthroid) 50 mcg PO DAILY@0630 [facility] Stop: 08/14/18 09:01 Naloxone HCl (Narcan) 0.4 mg IVP Q2MIN PRN PRN Reason: SEE COMMENTS Stop: 08/13/18 16:05 Non-Formulary Medication (Omeprazole [Prilosec]) 40 mg PO DAILY [facility] Stop: 08/15/18 09:01 Oxybutynin Chloride (Ditropan) 5 mg PO DAILY RAMY PRN Reason: Protocol Stop: 08/14/18 09:01 Last Admin: 02/12/18 08:28 Dose: 5 mg Vancomycin HCl (Vancocin) 0 each IVPB AD PRN PRN Reason: SEE COMMENTS Stop: 08/13/18 16:29 Laboratory Tests 02/11/18 02/11/18 02/11/18 13:09 13:09 19:45 WBC 12.8 H Hgb Creatinine 1.41 H Troponin I 1.85 H* 1.60 H* 02/12/18 02/12/18 02/12/18 01:29 01:29 01:29 WBC Hgb 10.3 L Creatinine 1.24 H Troponin I 1.64 H* 02/12/18 08:26 WBC Hgb Creatinine Troponin I 1.69 H* - Imaging and Cardiology Chest Xray: report reviewed Echo: pending, report reviewed - EKG Interpretation EKG results cardiology: personally reviewed (ECG with SR, LBBB, HR 89.), other ( Telemetry reviewed with average HR previous 12 hours noted to be 91, SR. PVCs, short runs of atrial tachycardia.) Consult Discharge Plan - Plan Referrals: Marjorie Robles [Primary Care Provider] - <Eliseo Reno - Last Filed: 02/13/18 21:07> Date of Encounter: 02/12/18 Time of Encounter: 12:00 - Attending Attestation I have personally performed a face to face evaluation on this patient. I have reviewed and agree with the care plan. History and Exam by me shows: CC: Shortness of breath. Pt presented to ER after referral by primary care for increasing shortness of breath, productive cough, increasing weakness and difficulty with ambulation. Pt reports now has trouble changing from sitting to standing due to fatique, feels unsteady. She denies chest pain, admits to palpitations, decreased appetite, and generalized body aches. PMHX: reviewed PE: PT seen and examined, chart reviewed, agree with physical findings. IMP/Plan: 1. Pneumonia with sepsis, requiring fluid ressusitation and pressor support, continue current tx. 2. Sepsis : secondary to #1, continue IV ab, respiratory tx. 3. CAD: hx of distant PCI, unknowing, not clearly symptomatic, troponins mildly elevated, consistent with demand ischemia, however cannot rule out true ischemic substrate, will maximize medical tx, is not a candidate for acute invasive strategy at this point. Troponis elevated, but not rising, will continue to trend. Assessment and Plan Discussion w patient/family: The assessment and plan as outlined above was discussed with the patient and/or family members who expressed understanding and agreement. All questions were answered. Thank you for involving us in the care of your patient. Please call with any questions. History of Present Illness History of present illness: Ms. Valencia is a 88 year old female All Systems Review: The remainder of the systems were reviewed and are negative Physical Examination Vital Signs, Last 4 Hours Pulse Resp BP Pulse Ox 02/13/18 18:00 78 22 102/81 95 Results 02/13/18 03:55 02/13/18 05:34 Lab Results 02/13/18 02/13/18 02/13/18 02:30 03:55 05:34 WBC 20.8 H D Hgb 10.7 L Hct 33.3 L Plt Count 248 APTT 129.1 H* D Sodium 137 Potassium 3.7 Chloride 107 Carbon Dioxide 19 L BUN 75 H Creatinine 1.44 H Glucose 64 L Calcium 8.5 L Magnesium 2.4 Troponin I 02/13/18 02/13/18 07:51 12:37 WBC Hgb Hct Plt Count APTT 119.0 H* Sodium Potassium Chloride Carbon Dioxide BUN Creatinine Glucose Calcium Magnesium Troponin I 1.85 H*
[2018-02-12] MEDS ORDERED: Aspirin Enteric Coated 81 MG Tablet PO SCH (10:30)
--- NOTE | 2018-02-12 10:45 | Palliative - Consult Note ---
<Toni Kimball - Last Filed: 02/12/18 10:36> Date of Encounter: 02/12/18 Time of Encounter: 09:30 - Assessment and Plan (1) HCAP (healthcare-associated pneumonia) Current Visit: Yes Status: Acute Assessment and plan: Pneumonia is being treated by ICU team with antibiotics (vancomycin and cefepime ) and supplemental oxygen as needed. (2) Sepsis Current Visit: Yes Status: Acute Assessment and plan: Found to have Sepsis upon arrival as patient met multiple criteria with tachycardia, tachypnea, leukocytosis, lactic acidosis. Noted to be hypotensive, responded with fluids and with concerns for respiratory infection/pneumonia. Patient receiving broad-spectrum antibiotic coverage per primary/ICU team. Lactic acid noted to be down trending. Qualifiers: Sepsis type: sepsis due to unspecified organism Qualified Code(s): A41.9 - Sepsis, unspecified organism (3) NSTEMI (non-ST elevated myocardial infarction) Current Visit: Yes Status: Acute Assessment and plan: Elevated troponins in the setting of pneumonia, sepsis. NSTEMI vs demand ischemia. Patient was started on heparin drip and continued on home statin. Cardiology following, planning for TTE and to restart aspirin with hx of CAD s/ p remote PCI. (4) Acute respiratory failure Current Visit: Yes Status: Resolved Assessment and plan: Management per pulmonary/ICU team. Weaned from BiPAP to nasal cannula. Primary team treating underlying pneumonia with broad-spectrum antibiotics. Qualifiers: Respiratory failure complication: unspecified whether with hypoxia or hypercapnia Qualified Code(s): J96.00 - Acute respiratory failure, unspecified whether with hypoxia or hypercapnia (5) Goals of care, counseling/discussion Current Visit: Yes Status: Acute Assessment and plan: After discussion with the patient she wishes to be DNR CCA DNI. Does not wish to be maintained on machines. She would not want to be intubated and does not want to be maintained on a ventilator. She admits to living a full life and not wanting measures to be done to restart her heart if it were to stop. Daughter and son-in-law present in the room during discussion and state this is consistent with her previous wishes. We have changed her CODE STATUS per her wishes. Ms. Valencia states that her medical POA is no longer her son, Donnie, as our records reflect. Stating that she now lives with her daughter, Jana, and during her recent rehab stay they updated her paperwork to make Jana her medical POA. Daughter states she can bring in the form tomorrow. Ms. Valencia states she has discussed in detail with her daughter her medical wishes if she were unable to make those decisions herself. Daughter notes that patient has previously expressed wanting a natural if that were to arrive, patient notes agreement. Palliative-CN HPI - Data of Consult Patient: new to practice Consult date: 02/11/18 (asked to wait to see patient til 02/12/18) Requesting Physician: Chilo Villalta MD Primary Care Provider: Marjorie Robles - Consult Narrative Palliative Care/Comfort Measures: Palliative care Reason for consult: discuss goals of care History of present illness: Ms. Valencia is a 88 year old female with a prior medical history of CVA roughly 1 month ago, CAD s/p stent (approx 10 years ago), and diabetes who presented to the emergency department on 02/11/18 with a chief complaint of dyspnea. Worsening symptoms over the previous 3 days. Recently discharged from a long term facility after rehabilitation from her stroke. Chest x-ray upon arrival in the ED demonstrates pulmonary edema. She was briefly placed on BiPAP with improvement of her symptoms and weaned to nasal cannula. Reported having a cough ever since leaving nursing facility last . Last month Ms. Valencia was admitted and underwent a neurologic workup for stroke found to have a lacunar infarct on brain MRI. She was also evaluated by cardiology during that visit for bradycardia. She had an echo at that time showing a preserved ejection fraction of 65% with mild left ventricular diastolic dysfunction. Cardiology re-consulted this visit due to elevated troponins in the setting of respiratory distress. For concerns of NSTEMI, patient was started on heparin infusion. Ms. Valencia met septic criteria with lactic acidosis, tachypnea, leukocytosis, hypotension in the setting of respiratory etiology, noted to respond with initial IV fluids and no evidence of shock noted. Initial provider had a discussion with patient and family regarding CODE STATUS , at that time patient had expressed that she was tired of being sick, however it was unclear if she fully understood her options for CODE STATUS and wished to further discuss this with family. Consult was placed to palliative care for further discussion of CODE STATUS and goals of care. CC: Chilo Villalta MD Past Med Surg Social Fam HX - Past Medical History Attestation: Yes The following information was validated with the patient. Source: old records reviewed Medical history: CVA, GERD, hyperlipidemia, hypertension, myocardial infarction , thyroid disease Psychiatric history: no psych history - Past Surgical History Surgical History: non-contributory - Social History Smoking Status: Never smoker Smokeless Tobacco Status: No Alcohol use: none Drug use: none - Family History Mother Living Status: Hx Family Cardiac Disorders: Yes Medications and Allergies Aspirin [Lo-Dose Aspirin EC] 81 mg PO DAILY 12/29/17 [History] Atorvastatin Calcium [Lipitor] 20 mg PO QPM 12/29/17 [History] Clopidogrel [Plavix] 75 mg PO DAILY 12/29/17 [History] Ferrous Sulfate [Iron] 325 mg PO DAILY 12/29/17 [History] Levothyroxine Sodium [Levoxyl] 50 mcg PO DAILY 12/29/17 [History] Metoprolol [Lopressor] 25 mg PO BID 12/29/17 [History] Omeprazole [PriLOSEC] 40 mg PO DAILY 12/29/17 [History] Oxybutynin [Ditropan] 5 mg PO DAILY 12/29/17 [History] 3 Allergy/AdvReac Type Severity Reaction Status Date / Time Penicillins [PCN] Allergy Rash Verified 12/29/17 10:56 Palliative Care-Exam - Constitutional Vitals: Temp Pulse Resp BP Pulse Ox 97.5 F L 80 26 107/68 95 02/12/18 07:00 02/12/18 10:00 02/12/18 10:00 02/12/18 10:00 02/12/18 10:04 General appearance: Present: no acute distress - Head Head Exam: Present: atraumatic, normal inspection - Eye Eye exam: Present: normal appearance - ENT ENT exam: Present: mucous membranes moist - Respiratory Respiratory exam: Present: decreased breath sounds. Absent: accessory muscle use, respiratory distress, stridor Additional comments: noted O2 saturation would decline while patient talking and would return to >90 % when she solely breathed through her nose. - Extremities Exam Extremities exam: Absent: pedal edema - Neurological Exam Neurological exam: Present: alert, oriented X3. Absent: speech deficit - Psychiatric Psychiatric exam: Present: normal affect, normal mood - Skin Skin exam: Present: dry, warm Internal Medicine - CN: Reslt - Labs CBC & Chem 7: 02/12/18 01:29 02/12/18 01:29 Labs: Short CBC 02/12/18 Range/Units 01:29 WBC 10.2 (4.3-11.1) K/mcL Hgb 10.3 L (11.5-15.4) g/dL Hct 32.6 L (35.3-44.9) % Plt Count 204 (140-400) K/mcL Neutrophils # 9.3 H (1.6-8.9) K/mcL BMP 02/12/18 01:29 Sodium 137 Potassium 3.5 Chloride 108 H Carbon Dioxide 15 L BUN 64 H Creatinine 1.24 H Glucose 180 H Calcium 8.7 Cardiac Enzymes 02/12/18 02/12/18 Range/Units 01:29 08:26 Troponin I 1.64 H* 1.69 H* (< 0.04) ng/mL - ABG Interpretation ABG results: PT/INR, D-dimer PT 14.3 Seconds (9.4-12.1) H 02/11/18 13:09 Consult Discharge Plan - Plan Referrals: Marjorie Robles [Primary Care Provider] - Palliative Quality Palliative Quality: Screen for Code Status: Yes, Screen for Goals of Care: Yes, Screen for Pain: Yes, If Pain Regimen Started, Initiate Bowel Regimen: NA, Screen for Nausea/Vomitting: Yes Code Status: 02/11/18 16:04 Resuscitation Status: Active [RES] Routine Comment: Resuscitation Status: [id number] <Teddy Castaneda L - Last Filed: 02/12/18 12:41> Date of Encounter: 02/12/18 Palliative-CN HPI - Data of Consult Requesting Physician: Chilo Villalta MD Primary Care Provider: Marjorie Robles - Consult Narrative History of present illness: Ms. Valencia is a 88 year old female CC: Chilo Villalta MD Palliative Care-Exam - Constitutional Vitals: Temp Pulse Resp BP Pulse Ox 97.5 F L 83 24 115/71 99 02/12/18 11:00 02/12/18 12:00 02/12/18 12:00 02/12/18 12:00 02/12/18 12:00 Internal Medicine - CN: Reslt - Labs CBC & Chem 7: 02/12/18 01:29 02/12/18 01:29 Labs: Short CBC 02/12/18 Range/Units 01:29 WBC 10.2 (4.3-11.1) K/mcL Hgb 10.3 L (11.5-15.4) g/dL Hct 32.6 L (35.3-44.9) % Plt Count 204 (140-400) K/mcL Neutrophils # 9.3 H (1.6-8.9) K/mcL BMP 02/12/18 01:29 Sodium 137 Potassium 3.5 Chloride 108 H Carbon Dioxide 15 L BUN 64 H Creatinine 1.24 H Glucose 180 H Calcium 8.7 Cardiac Enzymes 02/12/18 02/12/18 Range/Units 01:29 08:26 Troponin I 1.64 H* 1.69 H* (< 0.04) ng/mL - ABG Interpretation ABG results: PT/INR, D-dimer PT 14.3 Seconds (9.4-12.1) H 02/11/18 13:09 - Attending Attestation I examined this patient and my medical decision-making was reviewed with the Resident Physician. I agree with the documented findings, disposition and treatment plan as described except to the extent set forth below. Palliative Quality Code Status: 02/11/18 16:04 Resuscitation Status: Active [RES] Routine Comment: Resuscitation Status: [id number]
[2018-02-12] MEDS: Cefepime HCl 1,000 MG in Water for inj. (sterile) 20 ML 10 ML IVP SCH (11:35)
[2018-02-12] MEDS ORDERED: Insulin LISPRO 300 UNITS/3 ML VIAL SQ SCH (12:00)
[2018-02-12] MEDS ORDERED: Naloxone 0.4 MG/ML INJ IVP PRN (12:43)
[2018-02-12] MEDS ORDERED: *HR* Heparin 5,000 UNIT/ML VIAL IVP PRN ×2 (12:43)
[2018-02-12] MEDS: Insulin LISPRO 300 UNITS/3 ML VIAL SQ SCH (18:31)
[2018-02-12] MEDS: Heparin 25,000 UNIT/500 ML D5W 25,000 UNIT/500 ML BAG IVC SCH (20:12)
[2018-02-12] MEDS: *HR* HYDROcodone/Acet 5/325 mg TABLET PO PRN (23:10)
[2018-02-13] MEDS: Insulin LISPRO 300 UNITS/3 ML VIAL SQ SCH ×4 (00:30→18:12)
[2018-02-13 04:09] LABS: Basophils % 0.1 %; Hematocrit 33.3 % (35.3-44.9); Hemoglobin 10.7 g/dL (11.5-15.4); Immature Granulocytes % 3.1 % (0-4); Lymphocytes # 0.9 K/mcL (0.6-4.6); Lymphocytes % 4.4 %; Mean Corpuscular HGB Conc 32.1 g/dL (31.6-35.5); Mean Corpuscular Hemoglobin 29.2 pg (28.0-33.3); Mean Platelet Volume 10.9 fL (9.4-12.4); Monocytes # 1.3 K/mcL (0.0-1.3); Monocytes % 6.3 %; Neutrophils # 17.9 K/mcL (1.6-8.9); Nucleated Red Blood Cells 2.4 /100 WBC (0); Platelet Count 248 K/mcL (140-400); Red Blood Count 3.66 M/mcL (3.82-4.97); Red Cell Distribution Width 15.9 % (11.5-14.5); Segmented Neutrophils % 86.1 %
[2018-02-13 04:30] LABS: Activated Partial Thrombo Time 129.1 Seconds (26.0-36.0)
[2018-02-13 04:53] LABS: Heparin anti-factor XA UFH 0.92 IU/mL (0.30-0.70)
[2018-02-13 06:34] LABS: Calcium 8.5 mg/dL (8.6-10.3); Magnesium 2.4 mg/dL (1.6-2.6); Potassium 3.7 mEq/L (3.5-5.1)
--- NOTE | 2018-02-13 07:43 | Pulmonology Progress Note ---
<Anjel Bell - Last Filed: 02/13/18 12:30> Date of Encounter: 02/13/18 Time of Encounter: 09:19 Assessment and Plan (1) HCAP (healthcare-associated pneumonia) Current Visit: Yes Status: Acute Clinical pneumonia as evidenced by cough, recent healthcare facility admission, leukocytosis, respiratory failure requiring BiPAP. Chest x-ray with pulmonary edema however potential superimposed infiltrate is also a possibility. [facility]. We will treat broad-spectrum vancomycin and cefepime. MRSA surveillance screen negative Influenza screen negative (2) Sepsis Current Visit: Yes Status: Acute Patient met 3 SIRS criteria upon arrival given tachycardia, tachypnea and leukocytosis. Etiology suspected to be respiratory in nature. Chest x-ray with pulmonary edema however unable to exclude superimposed infiltrate. Initial lactic acidosis has resolved Continue broad-spectrum antibiotic coverage with vancomycin and cefepime. Influenza negative. MRSA surveillance negative. Qualifiers: Sepsis type: sepsis due to unspecified organism Qualified Code(s): A41.9 - Sepsis, unspecified organism (3) NSTEMI (non-ST elevated myocardial infarction) Current Visit: Yes Status: Acute Initial presentation with troponin of 1.85, which initially down trended to 1.64. Episode of chest pain overnight with repeat EKG that is without change however troponin back to 1.85. Previous echo earlier this year reviewed with a preserved ejection fraction of 65% with mild left ventricular diastolic dysfunction. Cardiology consultation ordered by the emergency department. Echo 02/12/18: Impression: LVEF 25% with severe systolic dysfunction Continue ASA Continue heparin gtt Patient elects to for left heart catheterization which will be performed once she is more stable anticipated for Friday. (4) Acute respiratory failure Current Visit: Yes Status: Resolved Initial tachypnea requiring noninvasive positive pressure ventilation with improvement of her symptoms. Likely secondary to acute CHF exacerbation with superimposed respiratory illness. Off Bipap on 02/11 Nasal cannula 2L Qualifiers: Respiratory failure complication: unspecified whether with hypoxia or hypercapnia Qualified Code(s): J96.00 - Acute respiratory failure, unspecified whether with hypoxia or hypercapnia (5) Generalized weakness Current Visit: No Status: Acute Multifactorial given her acute infectious process as well as pulmonary edema and prior CVA. (6) Lactic acidosis Current Visit: Yes Status: Acute Initial lactic acid of 3.4 on arrival which worsened to 4.4 prior to admission. Downtrending, most recent 2.4 Suspect type a lactic acidosis in the setting of infectious etiology with initial hypotension upon arrival Patient responded well to initial IV fluids and was given 25 g of 25% albumin as well. We will continue to trend lactic acids. (7) Hyperglycemia Current Visit: Yes Status: Acute Glucose to 180 this morning. Likely secondary to steroid use. NPO Speech therapy consult d/t concern for difficulty with PO Add insulin SS for coverage (8) LBBB (left bundle branch block) Current Visit: No Status: Chronic Previous documentation of left bundle branch block. (9) DVT prophylaxis Current Visit: No Status: Acute Currently on heparin infusion Subjective Principal diagnosis: Sepsis, Acute respiratory failure, NSTEMI Interval history: In brief Ruthie is an 88-year-old female who was admitted on 02/11/18 for NSTEMI and clinical pneumonia. 02/13/18: Patient reports an episode of chest pain overnight. Repeat EKG this morning without change from previous. Repeat troponin of 1.85 which is back to where she initially presented. She is chest pain-free at this time. Cardiology aware and discussed with them. She remains on a heparin drip. Updated family in the room. No other complaints. Objective PUL Vital signs: Last Vital Signs Temp 96.4 F L 02/13/18 03:32 Pulse 69 02/13/18 04:00 Resp 18 02/13/18 04:00 BP 99/63 02/13/18 04:00 Pulse Ox 99 02/13/18 04:00 General appearance: no acute distress Eyes: nonicteric ENT: oropharynx dry Effort: mildly labored Auscultation: bilateral: wheezes Cardiovascular: regular rate and rhythm Gastrointestinal: soft, non-tender, non-distended Integumentary: normal Extremities: no cyanosis, no edema Musculoskeletal: no deformities normal mental status Results - Laboratory Findings CBC and BMP: 02/13/18 03:55 02/13/18 05:34 PT/INR, D-dimer PT 14.3 Seconds (9.4-12.1) H 02/11/18 13:09 Abnormal lab findings: Abnormal lab results WBC 20.8 K/mcL (4.3-11.1) H D 02/13/18 03:55 RBC 3.66 M/mcL (3.82-4.97) L 02/13/18 03:55 Hgb 10.7 g/dL (11.5-15.4) L 02/13/18 03:55 Hct 33.3 % (35.3-44.9) L 02/13/18 03:55 RDW 15.9 % (11.5-14.5) H 02/13/18 03:55 Neutrophils # 17.9 K/mcL (1.6-8.9) H 02/13/18 03:55 Nucleated RBCs/100 WBC 2.4 /100 WBC (0) H 02/13/18 03:55 PT 14.3 Seconds (9.4-12.1) H 02/11/18 13:09 APTT 129.1 Seconds (26.0-36.0) H* D 02/13/18 02:30 Heparin Anti-Xa, Unfract 0.92 IU/mL (0.30-0.70) H 02/13/18 02:30 Carbon Dioxide 19 mEq/L (23-29) L 02/13/18 05:34 BUN 75 mg/dL (8-23) H 02/13/18 05:34 Creatinine 1.44 mg/dL (0.60-1.20) H 02/13/18 05:34 Est GFR ( Amer) 42 (> 60) L 02/13/18 05:34 Est GFR (Non-Af Amer) 35 (> 60) L 02/13/18 05:34 BUN/Creatinine Ratio 52 (6-26) H 02/13/18 05:34 Glucose 64 mg/dL (70-105) L 02/13/18 05:34 Calculated Osmolality 304 (280-300) H 02/13/18 05:34 Lactic Acid 2.3 mmol/L (0.5-2.2) H 02/12/18 08:26 Calcium 8.5 mg/dL (8.6-10.3) L 02/13/18 05:34 Troponin I 1.69 ng/mL (< 0.04) H* 02/12/18 08:26 Urine Protein 30 mg/dL (Neg-Trace) H 02/11/18 12:05 Urine Microscopic WBC 3-5 per hpf (0-3) H 02/11/18 12:05 Ur Squamous Epith Cells Many per lpf (None-Few) H 02/11/18 12:05 Vancomycin Trough 20 mcg/mL (5-10) H 02/13/18 03:55 - Microbiology Findings Microbiology Findings: Microbiology, Last 48 Hours 02/11/18 21:46 Influenza Types A,B Antigen (MAHESH) - Final Nasopharyngeal - Clinical Findings Intake & Output: Intake & Output 02/12/18 02/12/18 02/13/18 15:59 23:59 07:59 Intake Total 65 / 65 375 / 375 121 / 121 Output Total 200 / 200 160 / 160 50 / 50 Balance -135 / -135 215 / 215 71 / 71 Weight 57.6 kg Consult Discharge Plan - Plan Referrals: Marjorie Robles [Primary Care Provider] - <Chilo Villalta - Last Filed: 02/13/18 16:32> Date of Encounter: 02/13/18 Objective PUL Vital signs: Last Vital Signs Temp 97.4 F L 02/13/18 16:00 Pulse 82 02/13/18 16:00 Resp 26 02/13/18 16:00 BP 102/81 02/13/18 16:00 Pulse Ox 98 02/13/18 16:00 Results - Laboratory Findings CBC and BMP: 02/13/18 03:55 02/13/18 05:34 PT/INR, D-dimer PT 14.3 Seconds (9.4-12.1) H 02/11/18 13:09 Abnormal lab findings: Abnormal lab results WBC 20.8 K/mcL (4.3-11.1) H D 02/13/18 03:55 RBC 3.66 M/mcL (3.82-4.97) L 02/13/18 03:55 Hgb 10.7 g/dL (11.5-15.4) L 02/13/18 03:55 Hct 33.3 % (35.3-44.9) L 02/13/18 03:55 RDW 15.9 % (11.5-14.5) H 02/13/18 03:55 Neutrophils # 17.9 K/mcL (1.6-8.9) H 02/13/18 03:55 Nucleated RBCs/100 WBC 2.4 /100 WBC (0) H 02/13/18 03:55 PT 14.3 Seconds (9.4-12.1) H 02/11/18 13:09 APTT 119.0 Seconds (26.0-36.0) H* 02/13/18 12:37 Carbon Dioxide 19 mEq/L (23-29) L 02/13/18 05:34 BUN 75 mg/dL (8-23) H 02/13/18 05:34 Creatinine 1.44 mg/dL (0.60-1.20) H 02/13/18 05:34 Est GFR ( Amer) 42 (> 60) L 02/13/18 05:34 Est GFR (Non-Af Amer) 35 (> 60) L 02/13/18 05:34 BUN/Creatinine Ratio 52 (6-26) H 02/13/18 05:34 Glucose 64 mg/dL (70-105) L 02/13/18 05:34 POC Glucose 100 mg/dL (70-99) H 02/13/18 12:26 Calculated Osmolality 304 (280-300) H 02/13/18 05:34 Lactic Acid 2.3 mmol/L (0.5-2.2) H 02/12/18 08:26 Calcium 8.5 mg/dL (8.6-10.3) L 02/13/18 05:34 Troponin I 1.85 ng/mL (< 0.04) H* 02/13/18 07:51 Urine Protein 30 mg/dL (Neg-Trace) H 02/11/18 12:05 Urine Microscopic WBC 3-5 per hpf (0-3) H 02/11/18 12:05 Ur Squamous Epith Cells Many per lpf (None-Few) H 02/11/18 12:05 Vancomycin Trough 20 mcg/mL (5-10) H 02/13/18 03:55 - Microbiology Findings Microbiology Findings: Microbiology, Last 48 Hours 02/11/18 21:46 Influenza Types A,B Antigen (MAHESH) - Final Nasopharyngeal - Clinical Findings Intake & Output: Intake & Output 02/13/18 02/13/18 02/13/18 07:59 15:59 23:59 Intake Total 121 / 121 70 / 70 Output Total 50 / 50 130 / 130 150 / 150 Balance 71 / 71 -60 / -60 -150 / -150 Weight 57.6 kg - Attending Attestation I examined this patient and my medical decision-making was reviewed with the Resident Physician. I agree with the documented findings, disposition and treatment plan as described except to the extent set forth below. Patient seen and examined. Labs, radiology, chart personally reviewed. 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 Noninvasive ventilation as needed Cardiovascular: Have discussed with the fire control system installer regarding her condition and management will be deferred to fire control system installer GI: Nutrition per dietary and GI prophylaxis per routine Heme: DVT prophylaxis per routine ID: Continue antibiotics and plan to de-escalation Renal; urine out put and renal funtion reviewed Endorcine: blood glucose is monitored Lines: all lines checked and no evidence of infections Skin: skin care to prevent pressure ulcers per nursing routine care Prognosis is poor
--- NOTE | 2018-02-13 08:12 | Palliative Progress Note ---
Date of Encounter: 02/13/18 Time of Encounter: 07:15 - Assessment and plan (1) CKD (chronic kidney disease) stage 3, GFR 30-59 ml/min Current Visit: No Status: Acute Assessment and plan: Patient still making urine, BUN and creatinine still elevated, continue to watch plan per hospitalist and ICU team. (2) Goals of care, counseling/discussion Current Visit: Yes Status: Acute Assessment and plan: Patient is DNR CCA, DNI. Her discussion with patient and family specifically patient's daughter who is her new P MPOA patient does wish to have treatment for her conditions, (3) HCAP (healthcare-associated pneumonia) Current Visit: Yes Status: Acute Assessment and plan: On antibiotics plan per pulmonary. (4) Lactic acidosis Current Visit: Yes Status: Acute Assessment and plan: No new serum lactate today, bicarbonate remains low (5) NSTEMI (non-ST elevated myocardial infarction) Current Visit: Yes Status: Acute Assessment and plan: Troponin continues to trend upwards, however this is in the face of chronic renal insufficiency (6) Sepsis Current Visit: Yes Status: Acute Assessment and plan: Patient's white count is still elevated. Patient has no fever currently. She is not tachycardic however her blood pressure is somewhat on the low side. Is on antibiotics plan per hospitalist and Raghav team. Qualifiers: Sepsis type: sepsis due to unspecified organism Qualified Code(s): A41.9 - Sepsis, unspecified organism - Time Spent With Patient Total time spent is greater than 50% in coordination of care (as documented) at patient's floor/unit and/or counseling patient: - Subjective Interval history: Reports breathing okay now, she denies any chest pain currently but did have difficulty last night with breathing and chest discomfort. - Constitutional Vitals: Abnormal lab results WBC 20.8 K/mcL (4.3-11.1) H D 02/13/18 03:55 RBC 3.66 M/mcL (3.82-4.97) L 02/13/18 03:55 Hgb 10.7 g/dL (11.5-15.4) L 02/13/18 03:55 Hct 33.3 % (35.3-44.9) L 02/13/18 03:55 RDW 15.9 % (11.5-14.5) H 02/13/18 03:55 Neutrophils # 17.9 K/mcL (1.6-8.9) H 02/13/18 03:55 Nucleated RBCs/100 WBC 2.4 /100 WBC (0) H 02/13/18 03:55 PT 14.3 Seconds (9.4-12.1) H 02/11/18 13:09 APTT 129.1 Seconds (26.0-36.0) H* D 02/13/18 02:30 Heparin Anti-Xa, Unfract 0.92 IU/mL (0.30-0.70) H 02/13/18 02:30 Carbon Dioxide 19 mEq/L (23-29) L 02/13/18 05:34 BUN 75 mg/dL (8-23) H 02/13/18 05:34 Creatinine 1.44 mg/dL (0.60-1.20) H 02/13/18 05:34 Est GFR ( Amer) 42 (> 60) L 02/13/18 05:34 Est GFR (Non-Af Amer) 35 (> 60) L 02/13/18 05:34 BUN/Creatinine Ratio 52 (6-26) H 02/13/18 05:34 Glucose 64 mg/dL (70-105) L 02/13/18 05:34 Calculated Osmolality 304 (280-300) H 02/13/18 05:34 Lactic Acid 2.3 mmol/L (0.5-2.2) H 02/12/18 08:26 Calcium 8.5 mg/dL (8.6-10.3) L 02/13/18 05:34 Troponin I 1.69 ng/mL (< 0.04) H* 02/12/18 08:26 Urine Protein 30 mg/dL (Neg-Trace) H 02/11/18 12:05 Urine Microscopic WBC 3-5 per hpf (0-3) H 02/11/18 12:05 Ur Squamous Epith Cells Many per lpf (None-Few) H 02/11/18 12:05 Vancomycin Trough 20 mcg/mL (5-10) H 02/13/18 03:55 General appearance: Present: no acute distress - Respiratory Respiratory exam: Present: decreased breath sounds - Cardiovascular Cardiovascular exam: Present: RRR - GI/Abdominal GI/Abdominal exam: Present: normal bowel sounds, soft. Absent: tenderness - Extremities Exam Extremities exam: Present: pedal edema. Absent: tenderness - Neurological Exam Neurological exam: Present: alert - Psychiatric Psychiatric exam: Absent: agitated, anxious - Skin Skin exam: Present: dry, warm Palliative Quality Palliative Quality: Screen for Code Status: Yes, Screen for Goals of Care: Yes, Screen for Pain: Yes, If Pain Regimen Started, Initiate Bowel Regimen: NA, Screen for Nausea/Vomitting: Yes Code Status: 02/11/18 16:04 Resuscitation Status: Active [RES] Routine Comment: Resuscitation Status: [id number] - Labs CBC & Chem 7: 02/13/18 03:55 02/13/18 05:34 Labs: Laboratory Results - last 24 hr 02/12/18 02/12/18 02/12/18 08:26 08:26 11:06 WBC RBC Hgb Hct MCV MCH MCHC RDW Plt Count MPV Immature Gran % Seg Neutrophils % Lymphocytes % Monocytes % Eosinophils % Basophils % Neutrophils # Lymphocytes # Monocytes # Eosinophils # Basophils # Nucleated RBCs/100 WBC APTT Heparin Anti-Xa, Unfract Sodium Potassium Chloride Carbon Dioxide BUN Creatinine Est GFR ( Amer) Est GFR (Non-Af Amer) BUN/Creatinine Ratio Glucose POC Glucose 157 H Calculated Osmolality Lactic Acid 2.3 H Calcium Phosphorus Magnesium Troponin I 1.69 H* Vancomycin Trough Specimen Rejected 02/12/18 02/12/18 02/12/18 12:59 18:29 19:00 WBC RBC Hgb Hct MCV MCH MCHC RDW Plt Count MPV Immature Gran % Seg Neutrophils % Lymphocytes % Monocytes % Eosinophils % Basophils % Neutrophils # Lymphocytes # Monocytes # Eosinophils # Basophils # Nucleated RBCs/100 WBC APTT 68.4 H 40.1 H Heparin Anti-Xa, Unfract Sodium Potassium Chloride Carbon Dioxide BUN Creatinine Est GFR ( Amer) Est GFR (Non-Af Amer) BUN/Creatinine Ratio Glucose POC Glucose 182 H Calculated Osmolality Lactic Acid Calcium Phosphorus Magnesium Troponin I Vancomycin Trough Specimen Rejected 02/13/18 02/13/18 02/13/18 00:27 02:30 03:55 WBC 20.8 H D RBC 3.66 L Hgb 10.7 L Hct 33.3 L MCV 91.0 MCH 29.2 MCHC 32.1 RDW 15.9 H Plt Count 248 MPV 10.9 Immature Gran % 3.1 Seg Neutrophils % 86.1 Lymphocytes % 4.4 Monocytes % 6.3 Eosinophils % 0.0 Basophils % 0.1 Neutrophils # 17.9 H Lymphocytes # 0.9 Monocytes # 1.3 Eosinophils # 0.0 Basophils # 0.0 Nucleated RBCs/100 WBC 2.4 H APTT 129.1 H* D Heparin Anti-Xa, Unfract 0.92 H Sodium Potassium Chloride Carbon Dioxide BUN Creatinine Est GFR ( Amer) Est GFR (Non-Af Amer) BUN/Creatinine Ratio Glucose POC Glucose 190 H Calculated Osmolality Lactic Acid Calcium Phosphorus Magnesium Troponin I Vancomycin Trough Specimen Rejected 02/13/18 02/13/18 02/13/18 03:55 03:55 05:34 WBC RBC Hgb Hct MCV MCH MCHC RDW Plt Count MPV Immature Gran % Seg Neutrophils % Lymphocytes % Monocytes % Eosinophils % Basophils % Neutrophils # Lymphocytes # Monocytes # Eosinophils # Basophils # Nucleated RBCs/100 WBC APTT Heparin Anti-Xa, Unfract Sodium 137 Potassium 3.7 Chloride 107 Carbon Dioxide 19 L BUN 75 H Creatinine 1.44 H Est GFR ( Amer) 42 L Est GFR (Non-Af Amer) 35 L BUN/Creatinine Ratio 52 H Glucose 64 L POC Glucose Calculated Osmolality 304 H Lactic Acid Calcium 8.5 L Phosphorus 4.0 Magnesium 2.4 Troponin I Vancomycin Trough 20 H Specimen Rejected Hemolyzed 02/13/18 07:16 WBC RBC Hgb Hct MCV MCH MCHC RDW Plt Count MPV Immature Gran % Seg Neutrophils % Lymphocytes % Monocytes % Eosinophils % Basophils % Neutrophils # Lymphocytes # Monocytes # Eosinophils # Basophils # Nucleated RBCs/100 WBC APTT Heparin Anti-Xa, Unfract Sodium Potassium Chloride Carbon Dioxide BUN Creatinine Est GFR ( Amer) Est GFR (Non-Af Amer) BUN/Creatinine Ratio Glucose POC Glucose 90 Calculated Osmolality Lactic Acid Calcium Phosphorus Magnesium Troponin I Vancomycin Trough Specimen Rejected - Impressions Impressions Echocardiogram 02/12/18 09:42 Impressions: LVEF 25%. Severe global and segmental LV systolic dysfunction. Normal LV chamber size. Borderline mild increased LV wall thickness. Normal RV size. Mild to moderately reduced function. Bi-atrial enlargement. Moderate aortic regurgitation. Moderate mitral regurgitation. Mild-moderate tricuspid regurgitation. Mild-moderate pulmonic regurgitation. Moderate pulmonary hypertension. A pleural effusion is present. When compared to echo 12/30/2017, LV systolic function is newly reduced. Left Ventricular Wall Motion: Rest Echo Findings The apex, apical inferior, mid inferior, basal inferior, apical anterior, mid anterior, basal anterior, apical septal, mid inferior septal, basal inferior septal, apical lateral, mid anterior septal, mid inferior lateral and basal anterior septal mata were hypokinetic. All other wall segments showed normal motion. Findings: Study Quality * Technically adequate exam. ECG Findings * Normal sinus rhythm. Left Ventricle * LVEF 25%. * Normal LV chamber size. * Borderline mild increased LV wall thickness. * Indeterminate diastolic function. Right Ventricle * Normal RV size. Mild to moderately reduced function. Left Atrium * Severely dilated left atrium. Right Atrium * Moderately dilated right atrium. Aortic Valve * Aortic valve not well visualized. * Trileaflet aortic valve. * Mildly thickened and calcified aortic valve leaflets. * Moderate aortic regurgitation. Mitral Valve * Normal mitral valve structure. * No mitral stenosis. * Moderate mitral regurgitation. Tricuspid Valve * Tricuspid valve not well visualized. * Normal tricuspid valve structure. * Mild-moderate tricuspid regurgitation. * Estimated RA pressure is 8 mmHg. * Estimated RVSP is 56 mmHg. * Moderate pulmonary hypertension. Pulmonic Valve * Pulmonic valve is not well visualized. * No pulmonic stenosis. * Mild-moderate pulmonic regurgitation. Pulmonary Artery * Pulmonary artery not well visualized. Aorta * Normally sized aortic root. * Ascending aorta not well visualized. Pericardium * There is no pericardial effusion present. Pleural Effusion * A pleural effusion is present. Interatrial Septum * No evidence of PFO by color Doppler. IVC * The IVC is not dilated. * < 50% respiratory change. - ABG Interpretation ABG results: PT/INR, D-dimer PT 14.3 Seconds (9.4-12.1) H 02/11/18 13:09 Consult Discharge Plan - Plan Referrals: Marjorie Robles [Primary Care Provider] -
[2018-02-13] MEDS: Cefepime HCl 1,000 MG in Water for inj. (sterile) 20 ML 10 ML IVP SCH (08:47)
[2018-02-13] MEDS: Aspirin Enteric Coated 81 MG Tablet PO SCH (08:48)
[2018-02-13] MEDS: Heparin 25,000 UNIT/500 ML D5W 25,000 UNIT/500 ML BAG IVC SCH (11:00)
--- NOTE | 2018-02-13 11:38 | Cardiology Progress Note ---
Date of Encounter: 02/13/18 Time of Encounter: 08:30 Assessment and Plan (1) Sepsis Current Visit: Yes Status: Acute Per cardiology: -Sepsis due to pneumonia. -Management per primary service. Qualifiers: Sepsis type: sepsis due to unspecified organism Qualified Code(s): A41.9 - Sepsis, unspecified organism (2) HCAP (healthcare-associated pneumonia) Current Visit: Yes Status: Acute Per cardiology: -Pneumonia. -On ATB. -Management per primary service. (3) NSTEMI (non-ST elevated myocardial infarction) Current Visit: Yes Status: Acute Per cardiology: -Troponins 1.85, 1.6, 1.64, 1.69, 1.85 in the setting of pneumonia, sepsis. NSTEMI vs. demand ischemia. -Denies current chest pain. -No acute ischemic ECG changes -TTE 12/2017 with LVEF 60-65%, mild concentric LVH, mild diastolic dysufnction, mild AR, mild TR, no segmental wall motion abnormalities. -TTE this admission with LVEF 25%, severe global and segmental LV systoli dysfunction, bi-atrial enlargement, moderate AR, moderate MR, mild-moderate TR, mild-moderate PH, normal RV size, mild-moderate reduced function. -On heparin drip. -Of note, patient is unable to tolerate laying flat due to respiratory status. -Discussed at length with patient and family regarding newly reduced LV systolic function, recommend LHC. Patient is agreeable for LHC. Risks versus benefits of LHC explained to patient and family. Patient states understanding. Patient educated on need to be full code for procedure and for 24 hours after. Pateint states understanding and agreeable to proceed. Of note, patient now stating she would be agreeable to intubation and ventilation. -No emergent need for LHC, pateint deneis current chest pain, no acute ECG changes. -PLan for LHC when stable or if clinical condition changes. (4) Cardiomyopathy Current Visit: Yes Status: Acute Per cardiology: -Newly reduced LVEF. -On beta kyle. -CHest x-ray with bilateral pleural effusions. -Will switch lopressor to toprol. -Will start low dose lasix. Continue to monitor BP and renal function closely. -Consider adding curry/arb prior to discharge pending BP and renal function. Qualifiers: Cardiomyopathy type: unspecified Qualified Code(s): I42.9 - Cardiomyopathy , unspecified (5) History of coronary artery disease Current Visit: No Status: Chronic Per cardiology: -History of CAD s/p remote PCI. -On statin, heparin drip, asa, beta kyle. -Plan for LHC when stable. Discussion w patient/family: The assessment and plan as outlined above was discussed with the patient and family who expressed understanding and agreement. All questions were answered. Thank you for involving us in the care of your patient. Please call with any questions. Discussed and reviewed with . Subjective Principal diagnosis: Sepsis, Acute respiratory failure, NSTEMI Interval history: Patient reports one episode of chest discomfort last night, reports it was during an episode of worsening respiratory status. Denies current chest pain. Objective Vital Signs, Last 4 Hours Temp Pulse Resp BP Pulse Ox 02/13/18 10:00 75 26 107/85 100 02/13/18 08:00 96.5 F L 90 24 111/64 100 General: Conversant, No Apparent Distress HEENT: Atraumatic, Normocephaly, Mucus Membranes Moist Neck: No JVD, Normal carotid pulses Cardiac: Reg Rate and Rhythm, Normal S1 and S2, No Murmur Lungs: Other (Lung sounds diminished to bilateral bases. Lung sounds coarse throughout.) Neuro: Alert and responsive, No focal deficits noted Abdomen: Soft, Non-Tender Skin: No rashes noted on visualized skin Musculoskeletal: No Chest Wall Tenderness Extremities: No Clubbing, No Cyanosis, No Edema, Normal Pulses Results 02/13/18 03:55 02/13/18 05:34 Lab Results Impressions Echocardiogram 02/12/18 09:42 Impressions: LVEF 25%. Severe global and segmental LV systolic dysfunction. Normal LV chamber size. Borderline mild increased LV wall thickness. Normal RV size. Mild to moderately reduced function. Bi-atrial enlargement. Moderate aortic regurgitation. Moderate mitral regurgitation. Mild-moderate tricuspid regurgitation. Mild-moderate pulmonic regurgitation. Moderate pulmonary hypertension. A pleural effusion is present. When compared to echo 12/30/2017, LV systolic function is newly reduced. Left Ventricular Wall Motion: Rest Echo Findings The apex, apical inferior, mid inferior, basal inferior, apical anterior, mid anterior, basal anterior, apical septal, mid inferior septal, basal inferior septal, apical lateral, mid anterior septal, mid inferior lateral and basal anterior septal mata were hypokinetic. All other wall segments showed normal motion. Findings: Study Quality * Technically adequate exam. ECG Findings * Normal sinus rhythm. Left Ventricle * LVEF 25%. * Normal LV chamber size. * Borderline mild increased LV wall thickness. * Indeterminate diastolic function. Right Ventricle * Normal RV size. Mild to moderately reduced function. Left Atrium * Severely dilated left atrium. Right Atrium * Moderately dilated right atrium. Aortic Valve * Aortic valve not well visualized. * Trileaflet aortic valve. * Mildly thickened and calcified aortic valve leaflets. * Moderate aortic regurgitation. Mitral Valve * Normal mitral valve structure. * No mitral stenosis. * Moderate mitral regurgitation. Tricuspid Valve * Tricuspid valve not well visualized. * Normal tricuspid valve structure. * Mild-moderate tricuspid regurgitation. * Estimated RA pressure is 8 mmHg. * Estimated RVSP is 56 mmHg. * Moderate pulmonary hypertension. Pulmonic Valve * Pulmonic valve is not well visualized. * No pulmonic stenosis. * Mild-moderate pulmonic regurgitation. Pulmonary Artery * Pulmonary artery not well visualized. Aorta * Normally sized aortic root. * Ascending aorta not well visualized. Pericardium * There is no pericardial effusion present. Pleural Effusion * A pleural effusion is present. Interatrial Septum * No evidence of PFO by color Doppler. IVC * The IVC is not dilated. * < 50% respiratory change. Chest X-Ray 02/13/18 08:36 IMPRESSION: Bibasilar atelectasis or infiltrates with bilateral pleural effusions. Follow up to resolution is suggested. D/ / 02/13/2018 10:21:10 Henny Flores MD / lenny Interpreting Provider: Henny Flores MD Active Medications Hydrocodone Bitart/Acetaminophen ([place] 5-325 Mg) 1 tab PO Q6H PRN PRN Reason: Pain Stop: 08/14/18 22:58 Last Admin: 02/12/18 23:10 Dose: 1 tab Aspirin (Aspirin Ec) 81 mg PO DAILY RAMY Stop: 08/14/18 10:31 Last Admin: 02/13/18 08:48 Dose: 81 mg Atorvastatin Calcium (Lipitor) 20 mg PO QPM RAMY Stop: 08/13/18 18:01 Last Admin: 02/12/18 18:30 Dose: 20 mg Dextrose/Water (Dextrose 50% (Syg)) 25 ml IVP AD PRN PRN Reason: Hypoglycemia Stop: 08/14/18 07:45 Ferrous Sulfate (Ferrous Sulfate) 325 mg PO DAILY RAMY Stop: 08/14/18 09:01 Last Admin: 02/13/18 08:48 Dose: 325 mg Glucagon (Glucagen) 1 mg IM ONCE PRN PRN Reason: Hypoglycemia Stop: 08/14/18 07:45 Glucose (Gluctose) 15 gm PO ONCE PRN PRN Reason: Hypoglycemia Stop: 08/14/18 07:45 Glucose (Gluctose) 30 gm PO ONCE PRN PRN Reason: Hypoglycemia Stop: 08/14/18 07:45 Heparin Sodium (Porcine) (Heparin) 3,400 unit 60 unit/kg (3400 unit) IVP Q6HR PRN PRN Reason: SEE COMMENTS Stop: 08/13/18 14:03 Heparin Sodium (Porcine) (Heparin) 1,700 unit 30 unit/kg (1700 unit) IVP Q6H PRN PRN Reason: SEE COMMENTS Stop: 08/13/18 14:03 Last Admin: 02/12/18 20:05 Dose: 1,700 unit Cefepime HCl 1,000 mg/ Sterile (Water) 10 mls @ 150 mls/hr IVP Q24H RAMY Stop: 08/15/18 09:01 Last Admin: 02/13/18 08:47 Dose: 150 mls/hr Dextrose (Dextrose 5%) 1,000 mls @ 100 mls/hr IVC .Q10H PRN PRN Reason: HYPOGLYCEMIA Stop: 08/14/18 07:45 Heparin Sodium/Dextrose (Heparin 25,000 Unit/500 Ml D5w) 25,000 unit in 500 mls @ 13.608 mls/hr IVC .Q24H RAMY; 12 UNIT/KG/HR PRN Reason: Protocol Stop: 08/13/18 14:16 Last Admin: 02/12/18 20:12 Dose: Not Given Insulin Human Lispro (Humalog) 0 units SQ Q6HR RAMY PRN Reason: Protocol Stop: 08/14/18 12:01 Last Admin: 02/13/18 06:35 Dose: Not Given Levothyroxine Sodium (Synthroid) 50 mcg PO DAILY@0630 RAMY Stop: 08/14/18 09:01 Last Admin: 02/13/18 05:55 Dose: 50 mcg Metoprolol Tartrate (Lopressor) 25 mg PO BID [facility] Stop: 08/14/18 21:01 Last Admin: 02/13/18 08:48 Dose: 25 mg Naloxone HCl (Narcan) 0.4 mg IVP Q2MIN PRN PRN Reason: SEE COMMENTS Stop: 08/13/18 16:05 Omeprazole (Prilosec) 40 mg PO DAILY@0730 [facility] Stop: 08/15/18 07:31 Last Admin: 02/13/18 08:48 Dose: 40 mg Oxybutynin Chloride (Ditropan) 5 mg PO DAILY RAMY PRN Reason: Protocol Stop: 08/14/18 09:01 Last Admin: 02/13/18 08:48 Dose: 5 mg Vancomycin HCl (Vancocin) 0 each IVPB AD PRN PRN Reason: SEE COMMENTS Stop: 08/13/18 16:29 Laboratory Tests 02/11/18 02/11/18 02/12/18 13:09 19:45 01:29 WBC 10.2 Hgb Creatinine Troponin I 1.85 H* 1.60 H* 02/12/18 02/12/18 02/12/18 01:29 01:29 08:26 WBC Hgb Creatinine 1.24 H Troponin I 1.64 H* 1.69 H* 02/13/18 02/13/18 02/13/18 03:55 05:34 07:51 WBC 20.8 H D Hgb 10.7 L Creatinine 1.44 H Troponin I 1.85 H* - Imaging and Cardiology Chest Xray: report reviewed Echo: report reviewed - EKG Interpretation EKG results cardiology: other (Telemetry reviewed with average HR previous 12 hours noted to be 73, SR. Short runs of atrial tachycardia noted.) Consult Discharge Plan - Plan Referrals: Marjorie Robles [Primary Care Provider] -
[2018-02-13] MEDS: Furosemide 20 MG/2 ML VIAL IVP SCH (12:40)
[2018-02-13 13:29] LABS: Heparin anti-factor XA UFH 0.55 IU/mL (0.30-0.70)
[2018-02-14] MEDS: Insulin LISPRO 300 UNITS/3 ML VIAL SQ SCH ×5 (00:17→23:33)
[2018-02-14 04:19] LABS: Basophils % 0.1 %; Eosinophils % 0.2 %; Hematocrit 35.5 % (35.3-44.9); Hemoglobin 11.3 g/dL (11.5-15.4); Immature Granulocytes % 3.5 % (0-4); Lymphocytes # 1.2 K/mcL (0.6-4.6); Lymphocytes % 7.2 %; Mean Corpuscular HGB Conc 31.8 g/dL (31.6-35.5); Mean Corpuscular Hemoglobin 29.4 pg (28.0-33.3); Mean Corpuscular Volume 92.2 fL (83.0-100.0); Mean Platelet Volume 11.3 fL (9.4-12.4); Monocytes # 0.8 K/mcL (0.0-1.3); Monocytes % 4.7 %; Neutrophils # 13.7 K/mcL (1.6-8.9); Platelet Count 221 K/mcL (140-400); Red Blood Count 3.85 M/mcL (3.82-4.97); Red Cell Distribution Width 16.9 % (11.5-14.5); Segmented Neutrophils % 84.3 %
[2018-02-14 04:42] LABS: Calcium 8.5 mg/dL (8.6-10.3); Magnesium 2.5 mg/dL (1.6-2.6); Phosphorous 3.6 mg/dL (2.7-4.5); Potassium 4.4 mEq/L (3.5-5.1)
[2018-02-14] MEDS ORDERED: Vancomycin 500 MG in 0.9 % Sodium Chloride Mini Bag 100 ML IVPB ONE (06:00)
--- NOTE | 2018-02-14 06:40 | Electrocardiograph Report ---
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
--- NOTE | 2018-02-14 07:18 | Pulmonology Progress Note ---
<Anjel Bell - Last Filed: 02/14/18 08:33> Date of Encounter: 02/14/18 Time of Encounter: 08:34 Assessment and Plan (1) HCAP (healthcare-associated pneumonia) Current Visit: Yes Status: Acute Clinical pneumonia as evidenced by cough, recent healthcare facility admission, leukocytosis, respiratory failure requiring BiPAP. Chest x-ray with pulmonary edema however potential superimposed infiltrate is also a possibility. She was recently at a nursing home facility for rehabilitation. We will treat broad-spectrum vancomycin and cefepime. MRSA surveillance screen negative Influenza screen negative (2) Sepsis Current Visit: Yes Status: Acute Patient met 3 SIRS criteria upon arrival given tachycardia, tachypnea and leukocytosis. Etiology suspected to be respiratory in nature. Chest x-ray with pulmonary edema however unable to exclude superimposed infiltrate. Initial lactic acidosis has resolved Continue broad-spectrum antibiotic coverage with vancomycin and cefepime. Influenza negative. MRSA surveillance negative. Qualifiers: Sepsis type: sepsis due to unspecified organism Qualified Code(s): A41.9 - Sepsis, unspecified organism (3) NSTEMI (non-ST elevated myocardial infarction) Current Visit: Yes Status: Acute Initial presentation with troponin of 1.85, which initially down trended to 1.64. Episode of chest pain 02/12 with repeat EKG that is without change however troponin back to 1.85. Previous echo earlier this year reviewed with a preserved ejection fraction of 65% with mild left ventricular diastolic dysfunction. Cardiology consultation ordered by the emergency department. Echo 02/12/18: Impression: LVEF 25% with severe systolic dysfunction Continue ASA Continue heparin gtt Changed to Toprol 25 mg XL Lasix 20 mg daily. Patient elects to for left heart catheterization which will be performed once she is more stable anticipated for Friday. (4) Acute respiratory failure Current Visit: Yes Status: Resolved Initial tachypnea requiring noninvasive positive pressure ventilation with improvement of her symptoms. Likely secondary to acute CHF exacerbation with superimposed respiratory illness. Off Bipap on 02/11 Nasal cannula 2L Qualifiers: Respiratory failure complication: unspecified whether with hypoxia or hypercapnia Qualified Code(s): J96.00 - Acute respiratory failure, unspecified whether with hypoxia or hypercapnia (5) Generalized weakness Current Visit: No Status: Acute Multifactorial given her acute infectious process as well as pulmonary edema and prior CVA. (6) Lactic acidosis Current Visit: Yes Status: Resolved Initial lactic acid of 3.4 on arrival which worsened to 4.4 prior to admission. Downtrending, most recent 2.4 Suspect type a lactic acidosis in the setting of infectious etiology with initial hypotension upon arrival (7) Hyperglycemia Current Visit: Yes Status: Acute Improved. Speech therapy consulted d/t concern for difficulty with PO Insulin SS for coverage (8) LBBB (left bundle branch block) Current Visit: No Status: Chronic Previous documentation of left bundle branch block. (9) DVT prophylaxis Current Visit: No Status: Acute Currently on heparin infusion Subjective Principal diagnosis: Sepsis, Acute respiratory failure, NSTEMI Interval history: In brief Ruthie is an 88-year-old female who was admitted on 02/11/18 for NSTEMI and clinical pneumonia. No new complaints this morning as per patient. Continued poor intake or sleep drinking and sugar. Evaluated by cardiology yesterday and currently in anticipation for a left heart catheterization at the beginning of the week. She remains on a heparin drip. Objective PUL Vital signs: Last Vital Signs Temp 96.4 F L 02/14/18 03:45 Pulse 67 02/14/18 05:00 Resp 20 02/14/18 05:00 BP 96/54 02/14/18 05:00 Pulse Ox 92 02/14/18 05:00 General appearance: no acute distress ENT: oropharynx moist Effort: mildly labored Auscultation: bilateral: rhonchi Cardiovascular: regular rate and rhythm Gastrointestinal: non-tender, non-distended Integumentary: normal Extremities: no cyanosis, no edema Musculoskeletal: no deformities normal mental status mood appropriate Results - Laboratory Findings CBC and BMP: 02/14/18 03:59 02/14/18 03:59 PT/INR, D-dimer PT 14.3 Seconds (9.4-12.1) H 02/11/18 13:09 Abnormal lab findings: Abnormal lab results WBC 16.2 K/mcL (4.3-11.1) H 02/14/18 03:59 Hgb 11.3 g/dL (11.5-15.4) L 02/14/18 03:59 RDW 16.9 % (11.5-14.5) H 02/14/18 03:59 Neutrophils # 13.7 K/mcL (1.6-8.9) H 02/14/18 03:59 Nucleated RBCs/100 WBC 2.0 /100 WBC (0) H 02/14/18 03:59 PT 14.3 Seconds (9.4-12.1) H 02/11/18 13:09 APTT 48.2 Seconds (26.0-36.0) H 02/14/18 03:59 Sodium 133 mEq/L (136-145) L 02/14/18 03:59 Carbon Dioxide 15 mEq/L (23-29) L 02/14/18 03:59 BUN 82 mg/dL (8-23) H 02/14/18 03:59 Creatinine 1.38 mg/dL (0.60-1.20) H 02/14/18 03:59 Est GFR ( Amer) 44 (> 60) L 02/14/18 03:59 Est GFR (Non-Af Amer) 36 (> 60) L 02/14/18 03:59 BUN/Creatinine Ratio 59 (6-26) H 02/14/18 03:59 Glucose 133 mg/dL (70-105) H 02/14/18 03:59 POC Glucose 109 mg/dL (70-99) H 02/13/18 23:39 Calculated Osmolality 303 (280-300) H 02/14/18 03:59 Lactic Acid 2.3 mmol/L (0.5-2.2) H 02/12/18 08:26 Calcium 8.5 mg/dL (8.6-10.3) L 02/14/18 03:59 Troponin I 1.85 ng/mL (< 0.04) H* 02/13/18 07:51 Urine Protein 30 mg/dL (Neg-Trace) H 02/11/18 12:05 Urine Microscopic WBC 3-5 per hpf (0-3) H 02/11/18 12:05 Ur Squamous Epith Cells Many per lpf (None-Few) H 02/11/18 12:05 - Clinical Findings Intake & Output: Intake & Output 02/13/18 02/13/18 02/14/18 15:59 23:59 07:59 Intake Total 70 / 70 153 / 153 328 / 328 Output Total 130 / 130 360 / 360 50 / 50 Balance -60 / -60 -207 / -207 278 / 278 Weight 57.8 kg Consult Discharge Plan - Plan Referrals: Marjorie Robles [Primary Care Provider] - <SaadlChilo triana M - Last Filed: 02/14/18 10:04> Date of Encounter: 02/14/18 Objective PUL Vital signs: Last Vital Signs Temp 96.4 F L 02/14/18 03:45 Pulse 79 02/14/18 10:00 Resp 20 02/14/18 10:00 BP 115/74 02/14/18 09:51 Pulse Ox 93 02/14/18 10:00 Results - Laboratory Findings CBC and BMP: 02/14/18 03:59 02/14/18 03:59 PT/INR, D-dimer PT 14.3 Seconds (9.4-12.1) H 02/11/18 13:09 Abnormal lab findings: Abnormal lab results WBC 16.2 K/mcL (4.3-11.1) H 02/14/18 03:59 Hgb 11.3 g/dL (11.5-15.4) L 02/14/18 03:59 RDW 16.9 % (11.5-14.5) H 02/14/18 03:59 Neutrophils # 13.7 K/mcL (1.6-8.9) H 02/14/18 03:59 Nucleated RBCs/100 WBC 2.0 /100 WBC (0) H 02/14/18 03:59 PT 14.3 Seconds (9.4-12.1) H 02/11/18 13:09 APTT 48.2 Seconds (26.0-36.0) H 02/14/18 03:59 Sodium 133 mEq/L (136-145) L 02/14/18 03:59 Carbon Dioxide 15 mEq/L (23-29) L 02/14/18 03:59 BUN 82 mg/dL (8-23) H 02/14/18 03:59 Creatinine 1.38 mg/dL (0.60-1.20) H 02/14/18 03:59 Est GFR ( Amer) 44 (> 60) L 02/14/18 03:59 Est GFR (Non-Af Amer) 36 (> 60) L 02/14/18 03:59 BUN/Creatinine Ratio 59 (6-26) H 02/14/18 03:59 Glucose 133 mg/dL (70-105) H 02/14/18 03:59 POC Glucose 126 mg/dL (70-99) H 02/14/18 07:54 Calculated Osmolality 303 (280-300) H 02/14/18 03:59 Lactic Acid 2.3 mmol/L (0.5-2.2) H 02/12/18 08:26 Calcium 8.5 mg/dL (8.6-10.3) L 02/14/18 03:59 Troponin I 1.85 ng/mL (< 0.04) H* 02/13/18 07:51 Urine Protein 30 mg/dL (Neg-Trace) H 02/11/18 12:05 Urine Microscopic WBC 3-5 per hpf (0-3) H 02/11/18 12:05 Ur Squamous Epith Cells Many per lpf (None-Few) H 02/11/18 12:05 - Clinical Findings Intake & Output: Intake & Output 02/13/18 02/14/18 02/14/18 23:59 07:59 15:59 Intake Total 153 / 153 328 / 328 Output Total 360 / 360 50 / 50 50 / 50 Balance -207 / -207 278 / 278 -50 / -50 Weight 57.8 kg - Attending Attestation I examined this patient and my medical decision-making was reviewed with the Resident Physician. I agree with the documented findings, disposition and treatment plan as described except to the extent set forth below. Patient seen and examined. Labs, radiology, chart personally reviewed. 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 Noninvasive ventilation as needed. Cardiovascular: Cardiology follow-up. Prognosis is poor. GI: Nutrition per dietary and GI prophylaxis per routine Heme: DVT prophylaxis per routine ID: Continue antibiotics and plan to de-escalation Renal; urine out put and renal funtion reviewed Endorcine: blood glucose is monitored Lines: all lines checked and no evidence of infections Skin: skin care to prevent pressure ulcers per nursing routine care
[2018-02-14] MEDS: Cefepime HCl 1,000 MG in Water for inj. (sterile) 20 ML 10 ML IVP SCH (08:47)
[2018-02-14] MEDS: Metoprolol XL (24 HR) Succ 25 MG TAB.ER.24H PO SCH (08:48)
[2018-02-14] MEDS: Aspirin Enteric Coated 81 MG Tablet PO SCH (08:48)
[2018-02-14] MEDS: Furosemide 20 MG/2 ML VIAL IVP SCH (08:49)
[2018-02-14] MEDS ORDERED: Ipratropium/Albuterol Neb 3 ML IH PRN (09:47)
--- NOTE | 2018-02-14 11:38 | Cardiology Progress Note ---
Date of Encounter: 02/14/18 Time of Encounter: 11:00 Assessment and Plan (1) Acute exacerbation of CHF (congestive heart failure) Current Visit: Yes Status: Acute Acute on chronic systolic heart failure, decreased LV systolic function, new, better compensated on daily diuretic- TTE 12/2017 with LVEF 60-65%, mild concentric LVH, mild diastolic dysufnction, mild AR, mild TR, no segmental wall motion abnormalities. -TTE this admission with LVEF 25%, severe global and segmental LV systoli dysfunction, bi-atrial enlargement, moderate AR, moderate MR, mild-moderate TR, mild-moderate PH, normal RV size, mild-moderate reduced function. Qualifiers: Heart failure type: systolic Qualified Code(s): I50.23 - Acute on chronic systolic (congestive) heart failure (2) Sepsis Current Visit: Yes Status: Acute Per cardiology: -Sepsis due to pneumonia, resolving, hypotension resolved. . -Management per primary service. Qualifiers: Sepsis type: sepsis due to unspecified organism Qualified Code(s): A41.9 - Sepsis, unspecified organism (3) NSTEMI (non-ST elevated myocardial infarction) Current Visit: Yes Status: Acute Per cardiology: No chest pain overnight, pt now declining LHC, but would reconsider daily. -Troponins 1.85, 1.6, 1.64, 1.69, 1.85 in the setting of pneumonia, sepsis. NSTEMI vs. demand ischemia. -Denies current chest pain. -No acute ischemic ECG changes -On heparin drip. -Of note, patient is unable to tolerate laying flat due to respiratory status. Discussion w patient/family: The assessment and plan as outlined above was discussed with the patient and/or family members who expressed understanding and agreement. All questions were answered. Thank you for involving us in the care of your patient. Please call with any questions. Subjective Principal diagnosis: Sepsis, Acute respiratory failure, NSTEMI Interval history: PT complains of pain in both arms from IV attempts, more short of breath, no chest pains or palpitations, and very tired because she can not sleep with everyone poking her. Family at beside reports she is more cranky, but much more engaged today. Objective Vital Signs, Last 4 Hours Pulse Resp BP Pulse Ox 02/14/18 10:00 79 20 93 02/14/18 09:51 21 115/74 94 02/14/18 08:36 82 24 115/74 94 General: Conversant HEENT: Atraumatic, Normocephaly, Mucus Membranes Moist Neck: No JVD Cardiac: Other (irreg irreg, a fib on monitor, controlled ventricular response) Lungs: Other (decreased bilat breath sounds, rhonchi both bases improve with cough) Abdomen: Soft, Non-Tender Skin: No rashes noted on visualized skin Musculoskeletal: No Chest Wall Tenderness Extremities: No Clubbing, No Cyanosis, No Edema, Normal Pulses Results 02/14/18 03:59 02/14/18 03:59 Lab Results 02/13/18 02/13/18 02/14/18 12:37 21:12 03:59 WBC 16.2 H Hgb 11.3 L Hct 35.5 Plt Count 221 APTT 119.0 H* 41.1 H D Sodium Potassium Chloride Carbon Dioxide BUN Creatinine Glucose Calcium Magnesium 02/14/18 02/14/18 03:59 03:59 WBC Hgb Hct Plt Count APTT 48.2 H Sodium 133 L Potassium 4.4 Chloride 103 Carbon Dioxide 15 L BUN 82 H Creatinine 1.38 H Glucose 133 H Calcium 8.5 L Magnesium 2.5 Consult Discharge Plan - Plan Referrals: Marjorie Robles [Primary Care Provider] -
[2018-02-14] MEDS: *HR* Enoxaparin 40 MG/0.4 ML SYRINGE SQ SCH (16:18)
[2018-02-15] MEDS: *HR* Enoxaparin 40 MG/0.4 ML SYRINGE SQ SCH ×2 (03:09→14:21)
[2018-02-15 03:52] LABS: Basophils % 0.1 %; Eosinophils # 0.1 K/mcL (0.0-0.6); Eosinophils % 0.4 %; Hematocrit 35.5 % (35.3-44.9); Hemoglobin 11.3 g/dL (11.5-15.4); Immature Granulocytes % 2.2 % (0-4); Lymphocytes # 1.1 K/mcL (0.6-4.6); Lymphocytes % 7.5 %; Mean Corpuscular HGB Conc 31.8 g/dL (31.6-35.5); Mean Corpuscular Hemoglobin 29.4 pg (28.0-33.3); Mean Corpuscular Volume 92.2 fL (83.0-100.0); Monocytes % 7.1 %; Neutrophils # 12.2 K/mcL (1.6-8.9); Nucleated Red Blood Cells 1.6 /100 WBC (0); Platelet Count 182 K/mcL (140-400); Red Blood Count 3.85 M/mcL (3.82-4.97); Red Cell Distribution Width 17.3 % (11.5-14.5); Segmented Neutrophils % 82.7 %
[2018-02-15 04:11] LABS: Calcium 8.6 mg/dL (8.6-10.3); Potassium 3.6 mEq/L (3.5-5.1)
[2018-02-15] MEDS: Insulin LISPRO 300 UNITS/3 ML VIAL SQ SCH ×3 (05:09→17:44)
[2018-02-15] MEDS ORDERED: Vancomycin 500 MG in 0.9 % Sodium Chloride Mini Bag 100 ML IVPB ONE (06:00)
--- NOTE | 2018-02-15 07:08 | Pulmonology Progress Note ---
<Anjel Bell - Last Filed: 02/15/18 09:46> Date of Encounter: 02/15/18 Time of Encounter: 09:46 Assessment and Plan (1) HCAP (healthcare-associated pneumonia) Current Visit: Yes Status: Acute Clinical pneumonia as evidenced by cough, recent healthcare facility admission, leukocytosis, respiratory failure requiring BiPAP. Chest x-ray with pulmonary edema however potential superimposed infiltrate is also a possibility. She was recently at a halfway facility for rehabilitation. We will treat broad-spectrum vancomycin and cefepime. MRSA surveillance screen negative Influenza screen negative (2) Sepsis Current Visit: Yes Status: Resolved Resolved Patient met 3 SIRS criteria upon arrival given tachycardia, tachypnea and leukocytosis. Etiology suspected to be respiratory in nature. Chest x-ray with pulmonary edema however unable to exclude superimposed infiltrate. Initial lactic acidosis has resolved Continue broad-spectrum antibiotic coverage with vancomycin and cefepime. Influenza negative. MRSA surveillance negative. Qualifiers: Sepsis type: sepsis due to unspecified organism Qualified Code(s): A41.9 - Sepsis, unspecified organism (3) NSTEMI (non-ST elevated myocardial infarction) Current Visit: Yes Status: Acute Initial presentation with troponin of 1.85, which initially down trended to 1.64. Episode of chest pain 02/12 with repeat EKG that is without change however troponin back to 1.85. Previous echo earlier this year reviewed with a preserved ejection fraction of 65% with mild left ventricular diastolic dysfunction. Cardiology consultation ordered by the emergency department. Echo 02/12/18: Impression: LVEF 25% with severe systolic dysfunction Continue ASA Continue heparin gtt Toprol 25 mg XL Lasix 20 mg daily. Transitioned from heparin to Lovenox. Patient elects to for left heart catheterization which will be performed once she is more stable anticipated for Friday. (4) Acute respiratory failure Current Visit: Yes Status: Resolved Initial tachypnea requiring noninvasive positive pressure ventilation with improvement of her symptoms. Likely secondary to acute CHF exacerbation with superimposed respiratory illness. Off Bipap on 02/11 Nasal cannula -4L Qualifiers: Respiratory failure complication: unspecified whether with hypoxia or hypercapnia Qualified Code(s): J96.00 - Acute respiratory failure, unspecified whether with hypoxia or hypercapnia (5) Generalized weakness Current Visit: No Status: Acute Multifactorial given her acute infectious process as well as pulmonary edema and prior CVA. (6) Lactic acidosis Current Visit: Yes Status: Resolved Initial lactic acid of 3.4 on arrival which worsened to 4.4 prior to admission. Downtrending, most recent 2.4 Suspect type a lactic acidosis in the setting of infectious etiology with initial hypotension upon arrival (7) Hyperglycemia Current Visit: Yes Status: Acute Improved. Speech therapy consulted d/t concern for difficulty with PO Insulin SS for coverage (8) LBBB (left bundle branch block) Current Visit: No Status: Chronic Previous documentation of left bundle branch block. (9) DVT prophylaxis Current Visit: No Status: Acute Currently on Lovenox Subjective Principal diagnosis: Sepsis, Acute respiratory failure, NSTEMI Interval history: In brief Ruthie is an 88-year-old female who was admitted on 02/11/18 for NSTEMI and clinical pneumonia. Continued poor intake. Transitioned from heparin to Lovenox yesterday. Anticipating left heart catheterization at the beginning of the week tentatively. Objective PUL Vital signs: Last Vital Signs Temp 97.1 F L 02/15/18 03:15 Pulse 90 02/15/18 05:29 Resp 24 02/15/18 05:29 BP 120/64 02/15/18 04:09 Pulse Ox 100 02/15/18 05:29 General appearance: no acute distress Eyes: nonicteric Effort: mildly labored Auscultation: bilateral: diminished breath sounds Cardiovascular: regular rate and rhythm Gastrointestinal: soft, non-tender, non-distended Integumentary: normal Extremities: no cyanosis, edema (1+ bilateral lower extremity edema) Musculoskeletal: no deformities normal mental status Results - Laboratory Findings CBC and BMP: 02/15/18 03:38 02/15/18 03:38 PT/INR, D-dimer PT 14.3 Seconds (9.4-12.1) H 02/11/18 13:09 Abnormal lab findings: Abnormal lab results WBC 14.8 K/mcL (4.3-11.1) H 02/15/18 03:38 Hgb 11.3 g/dL (11.5-15.4) L 02/15/18 03:38 RDW 17.3 % (11.5-14.5) H 02/15/18 03:38 Neutrophils # 12.2 K/mcL (1.6-8.9) H 02/15/18 03:38 Nucleated RBCs/100 WBC 1.6 /100 WBC (0) H 02/15/18 03:38 PT 14.3 Seconds (9.4-12.1) H 02/11/18 13:09 APTT 73.9 Seconds (26.0-36.0) H D 02/14/18 11:14 Carbon Dioxide 20 mEq/L (23-29) L 02/15/18 03:38 BUN 71 mg/dL (8-23) H 02/15/18 03:38 Creatinine 1.25 mg/dL (0.60-1.20) H 02/15/18 03:38 Est GFR ( Amer) 49 (> 60) L 02/15/18 03:38 Est GFR (Non-Af Amer) 41 (> 60) L 02/15/18 03:38 BUN/Creatinine Ratio 57 (6-26) H 02/15/18 03:38 Glucose 134 mg/dL (70-105) H 02/15/18 03:38 POC Glucose 135 mg/dL (70-99) H 02/14/18 23:15 Calculated Osmolality 309 (280-300) H 02/15/18 03:38 Lactic Acid 2.3 mmol/L (0.5-2.2) H 02/12/18 08:26 Troponin I 1.85 ng/mL (< 0.04) H* 02/13/18 07:51 Urine Protein 30 mg/dL (Neg-Trace) H 02/11/18 12:05 Urine Microscopic WBC 3-5 per hpf (0-3) H 02/11/18 12:05 Ur Squamous Epith Cells Many per lpf (None-Few) H 02/11/18 12:05 Vancomycin Trough 12 mcg/mL (5-10) H 02/15/18 03:38 - Clinical Findings Intake & Output: Intake & Output 02/14/18 02/14/18 02/15/18 15:59 23:59 07:59 Intake Total 10 10 0 / 0 Output Total 50 / 50 200 / 200 100 / 100 Balance -50 / -50 -190 / -190 -100 / -100 Weight 58.01 kg Consult Discharge Plan - Plan Referrals: Marjorie Robles [Primary Care Provider] - <Chilo Villalta - Last Filed: 02/15/18 11:28> Date of Encounter: 02/15/18 Objective PUL Vital signs: Last Vital Signs Temp 97.4 F L 02/15/18 08:02 Pulse 94 02/15/18 10:18 Resp 20 02/15/18 10:18 BP 121/69 02/15/18 10:18 Pulse Ox 94 02/15/18 10:18 Results - Laboratory Findings CBC and BMP: 02/15/18 03:38 02/15/18 03:38 PT/INR, D-dimer PT 14.3 Seconds (9.4-12.1) H 02/11/18 13:09 Abnormal lab findings: Abnormal lab results WBC 14.8 K/mcL (4.3-11.1) H 02/15/18 03:38 Hgb 11.3 g/dL (11.5-15.4) L 02/15/18 03:38 RDW 17.3 % (11.5-14.5) H 02/15/18 03:38 Neutrophils # 12.2 K/mcL (1.6-8.9) H 02/15/18 03:38 Nucleated RBCs/100 WBC 1.6 /100 WBC (0) H 02/15/18 03:38 PT 14.3 Seconds (9.4-12.1) H 02/11/18 13:09 APTT 73.9 Seconds (26.0-36.0) H D 02/14/18 11:14 Carbon Dioxide 20 mEq/L (23-29) L 02/15/18 03:38 BUN 71 mg/dL (8-23) H 02/15/18 03:38 Creatinine 1.25 mg/dL (0.60-1.20) H 02/15/18 03:38 Est GFR ( Amer) 49 (> 60) L 02/15/18 03:38 Est GFR (Non-Af Amer) 41 (> 60) L 02/15/18 03:38 BUN/Creatinine Ratio 57 (6-26) H 02/15/18 03:38 Glucose 134 mg/dL (70-105) H 02/15/18 03:38 POC Glucose 135 mg/dL (70-99) H 02/14/18 23:15 Calculated Osmolality 309 (280-300) H 02/15/18 03:38 Lactic Acid 2.3 mmol/L (0.5-2.2) H 02/12/18 08:26 Troponin I 1.85 ng/mL (< 0.04) H* 02/13/18 07:51 Urine Protein 30 mg/dL (Neg-Trace) H 02/11/18 12:05 Urine Microscopic WBC 3-5 per hpf (0-3) H 02/11/18 12:05 Ur Squamous Epith Cells Many per lpf (None-Few) H 02/11/18 12:05 Vancomycin Trough 12 mcg/mL (5-10) H 02/15/18 03:38 - Clinical Findings Intake & Output: Intake & Output 02/14/18 02/15/18 02/15/18 23:59 07:59 15:59 Intake Total 10 / 10 0 / 0 360 / 360 Output Total 200 / 200 100 / 100 100 / 100 Balance -190 / -190 -100 / -100 260 / 260 Weight 58.01 kg - Attending Attestation I examined this patient and my medical decision-making was reviewed with the Resident Physician. I agree with the documented findings, disposition and treatment plan as described except to the extent set forth below. Patient seen and examined. Labs, radiology, chart personally reviewed. 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 Plan for intervention will be deferred to cardiology GI: Nutrition per dietary and GI prophylaxis per routine Heme: DVT prophylaxis per routine ID: Continue antibiotics and plan to de-escalation Renal; urine out put and renal funtion reviewed Endorcine: blood glucose is monitored Lines: all lines checked and no evidence of infections Skin: skin care to prevent pressure ulcers per nursing routine care Overall prognosis is poor.
[2018-02-15] MEDS: Cefepime HCl 1,000 MG in Water for inj. (sterile) 20 ML 10 ML IVP SCH (08:01)
[2018-02-15] MEDS: Furosemide 20 MG/2 ML VIAL IVP SCH (08:03)
[2018-02-15] MEDS: Aspirin Enteric Coated 81 MG Tablet PO SCH (08:04)
[2018-02-15] MEDS: Metoprolol XL (24 HR) Succ 25 MG TAB.ER.24H PO SCH (08:04)
--- NOTE | 2018-02-15 09:51 | Event Note ---
Date of Encounter: 02/15/18 Time of Encounter: 09:15 Patient awake and alert, appears weak and slightly dyspneic. Does not desire to converse. Daughter and granddaughter at bedside and states she is "wore out ". Continues with hypoxic episodes particularly at night. Awaiting heart cath - daughter does not think she will be ready by tomorrow. Family understands she will be transitioned back to full code for LHC, has already been discussed by cardiology. Denies any pain or discomfort. Nothing to add from Palliative today.
--- NOTE | 2018-02-15 21:35 | Cardiology Progress Note ---
Date of Encounter: 02/15/18 Time of Encounter: 17:00 Assessment and Plan (1) Acute exacerbation of CHF (congestive heart failure) Current Visit: Yes Status: Acute Now better compensated TTE 12/2017 with LVEF 60-65%, mild concentric LVH, mild diastolic dysufnction, mild AR, mild TR, no segmental wall motion abnormalities. -TTE this admission with LVEF 25%, severe global and segmental LV systoli dysfunction, bi-atrial enlargement, moderate AR, moderate MR, mild-moderate TR, mild-moderate PH, normal RV size, mild-moderate reduced function. Qualifiers: Heart failure type: systolic Qualified Code(s): I50.23 - Acute on chronic systolic (congestive) heart failure (2) Sepsis Current Visit: Yes Status: Resolved Per cardiology: Resolved. -Management per primary service. Qualifiers: Sepsis type: sepsis due to unspecified organism Qualified Code(s): A41.9 - Sepsis, unspecified organism (3) NSTEMI (non-ST elevated myocardial infarction) Current Visit: Yes Status: Acute Per cardiology: No chest pain overnight, pt now declining LHC, discussed with daughter at bedside -Of note, patient is unable to tolerate laying flat due to respiratory status. Discussion w patient/family: The assessment and plan as outlined above was discussed with the patient and/or family members who expressed understanding and agreement. All questions were answered. Thank you for involving us in the care of your patient. Please call with any questions. Subjective Principal diagnosis: Sepsis, Acute respiratory failure, NSTEMI Interval history: PT complains of feeling very tired, worn out from being up in chair for two hours this morning. Discussed left heart cath, declines, feels she is too ill for any procedure, not sure she wants to go thru any more procedures. Pts daughter at beside reports Pt is tired and grumpy after activity this AM. She is not able to lie flat past 45 degrees without sudden onset of dyspnea. Objective Vital Signs, Last 4 Hours Temp Pulse Resp Pulse Ox 02/15/18 20:00 97 F L 73 16 99 General: Conversant (Mild conversational dyspnea) HEENT: Atraumatic, Normocephaly Neck: No JVD Cardiac: Reg Rate and Rhythm, Normal S1 and S2 Lungs: Other (Breath sounds decreased, poor inspiratory effort, scattered rhonchi which improve with cough. ) Neuro: Alert and responsive Abdomen: Soft Skin: No rashes noted on visualized skin Musculoskeletal: No Chest Wall Tenderness Extremities: No Clubbing, No Cyanosis Results 02/15/18 03:38 02/15/18 03:38 Lab Results 02/15/18 02/15/18 03:38 03:38 WBC 14.8 H Hgb 11.3 L Hct 35.5 Plt Count 182 Sodium 138 Potassium 3.6 Chloride 104 Carbon Dioxide 20 L BUN 71 H Creatinine 1.25 H Glucose 134 H Calcium 8.6 Consult Discharge Plan - Plan Referrals: Marjorie Robles [Primary Care Provider] -
[2018-02-16] MEDS: Insulin LISPRO 300 UNITS/3 ML VIAL SQ SCH ×4 (00:06→16:50)
[2018-02-16 04:06] LABS: Basophils % 0.1 %; Eosinophils # 0.2 K/mcL (0.0-0.6); Eosinophils % 0.9 %; Hemoglobin 11.6 g/dL (11.5-15.4); Immature Granulocytes % 2.9 % (0-4); Lymphocytes # 1.5 K/mcL (0.6-4.6); Lymphocytes % 9.2 %; Mean Corpuscular HGB Conc 31.4 g/dL (31.6-35.5); Mean Corpuscular Hemoglobin 29.1 pg (28.0-33.3); Mean Corpuscular Volume 92.7 fL (83.0-100.0); Mean Platelet Volume 11.1 fL (9.4-12.4); Monocytes # 1.3 K/mcL (0.0-1.3); Monocytes % 8.3 %; Neutrophils # 12.7 K/mcL (1.6-8.9); Nucleated Red Blood Cells 1.2 /100 WBC (0); Platelet Count 192 K/mcL (140-400); Red Blood Count 3.99 M/mcL (3.82-4.97); Segmented Neutrophils % 78.6 %
[2018-02-16 04:30] LABS: Calcium 8.7 mg/dL (8.6-10.3); Potassium 3.9 mEq/L (3.5-5.1)
[2018-02-16] MEDS ORDERED: Vancomycin 500 MG in 0.9 % Sodium Chloride Mini Bag 100 ML IVPB ONE (06:00)
--- NOTE | 2018-02-16 07:08 | Pulmonology Progress Note ---
Date of Encounter: 02/16/18 Time of Encounter: 07:08 Assessment and Plan (1) Goals of care, counseling/discussion Current Visit: Yes Status: Acute Patient seen and examined at bedside Labs, radiology, chart personally reviewed. Management was reviewed during multidisciplinary critical care rounds. MATERIAL DISTRIBUTOR: Awake and alert no focal deficits continue to monitor for delirium; based upon my assessment today patient has intact medical decision-making ability Pulm: Acute respiratory failure secondary to cardiogenic pulmonary edema from heart failure she is except will oxygenation on 2-3 L of nasal cannula O2 at this time okay for BiPAP as needed Cards: An STEMI with reduced ejection fraction acute heart failure cardiology following there is a plan for left heart catheterization if patient wishes to proceed with this however this is on hold at present FEN-GI: Advance diet as tolerated Renal: Urine output monitored ID: Being treated for sepsis with concern for pneumonia de-escalate antibiotics to an oral regimen today Heme/Onc: Patient has been receiving heparin infusion for ACS which is transitioned to Lovenox for the same reason. And likely be stopped today if no further cardiology intervention is planned Endo: Glucose Monitored Integ/MSK: Skin Care per routine ICU Nursing Protocol to prevent ulcers. Lines: All lines examined without evidence of infection : Dispo: Stable for transfer out of ICU CODE: DNAR/DNI. Patient clearly has expressed interest in transitioning to comfort measures palliative care is following the patient plan for family meeting today to address overall goals of care and can likely be transitioned to hospice measures (2) Diabetes mellitus Current Visit: No Status: Chronic Qualifiers: Diabetes mellitus type: type 2 Diabetes mellitus watermaster insulin use: without fpc use Diabetes mellitus complication status: with kidney complications Diabetes mellitus complication detail: with chronic kidney disease Chronic kidney disease stage: stage 3 (moderate) Qualified Code(s): E11.22 - Type 2 diabetes mellitus with diabetic chronic kidney disease; N18.3 - Chronic kidney disease, stage 3 (moderate); N18.3 - Chronic kidney disease, stage 3 (moderate) (3) History of coronary artery disease Current Visit: No Status: Chronic (4) NSTEMI (non-ST elevated myocardial infarction) Current Visit: Yes Status: Acute (5) Sepsis Current Visit: Yes Status: Resolved Qualifiers: Sepsis type: sepsis due to unspecified organism Qualified Code(s): A41.9 - Sepsis, unspecified organism (6) Acute respiratory failure Current Visit: Yes Status: Resolved Qualifiers: Respiratory failure complication: unspecified whether with hypoxia or hypercapnia Qualified Code(s): J96.00 - Acute respiratory failure, unspecified whether with hypoxia or hypercapnia (7) Cardiomyopathy Current Visit: Yes Status: Acute Qualifiers: Cardiomyopathy type: unspecified Qualified Code(s): I42.9 - Cardiomyopathy , unspecified Subjective Principal diagnosis: Sepsis, Acute respiratory failure, NSTEMI Interval history: Miss Valencia was seen and evaluated in the room today she states that she is tired and does not want any more aggressive care once transition to comfort measures and is refusing to proceed with left heart catheterization Otherwise remains hemodynamically stable Objective PUL Vital signs: Last Vital Signs Temp 96.9 F L 02/16/18 04:00 Pulse 99 02/16/18 06:00 Resp 22 02/16/18 06:00 BP 115/84 02/16/18 06:00 Pulse Ox 100 02/16/18 06:00 General appearance: other (Tired appearing but in no acute distress) Eyes: nonicteric ENT: oropharynx moist Effort: normal Auscultation: bilateral: wheezes, rales (In the lung bases) Cardiovascular: regular rate and rhythm Gastrointestinal: soft, non-tender Integumentary: normal Extremities: no edema normal mental status, non-focal exam, pupils equal and round mood appropriate Results - Laboratory Findings CBC and BMP: 02/16/18 03:49 02/16/18 03:49 PT/INR, D-dimer PT 14.3 Seconds (9.4-12.1) H 02/11/18 13:09 Abnormal lab findings: Abnormal lab results WBC 16.1 K/mcL (4.3-11.1) H 02/16/18 03:49 MCHC 31.4 g/dL (31.6-35.5) L 02/16/18 03:49 RDW 18.0 % (11.5-14.5) H 02/16/18 03:49 Neutrophils # 12.7 K/mcL (1.6-8.9) H 02/16/18 03:49 Nucleated RBCs/100 WBC 1.2 /100 WBC (0) H 02/16/18 03:49 PT 14.3 Seconds (9.4-12.1) H 02/11/18 13:09 APTT 73.9 Seconds (26.0-36.0) H D 02/14/18 11:14 BUN 62 mg/dL (8-23) H 02/16/18 03:49 Est GFR ( Amer) 58 (> 60) L 02/16/18 03:49 Est GFR (Non-Af Amer) 48 (> 60) L 02/16/18 03:49 BUN/Creatinine Ratio 57 (6-26) H 02/16/18 03:49 Glucose 109 mg/dL (70-105) H 02/16/18 03:49 Calculated Osmolality 306 (280-300) H 02/16/18 03:49 Lactic Acid 2.3 mmol/L (0.5-2.2) H 02/12/18 08:26 Troponin I 1.85 ng/mL (< 0.04) H* 02/13/18 07:51 Urine Protein 30 mg/dL (Neg-Trace) H 02/11/18 12:05 Urine Microscopic WBC 3-5 per hpf (0-3) H 02/11/18 12:05 Ur Squamous Epith Cells Many per lpf (None-Few) H 02/11/18 12:05 Vancomycin Trough 12 mcg/mL (5-10) H 02/16/18 03:49 - Clinical Findings Intake & Output: Intake & Output 02/15/18 02/15/18 02/16/18 15:59 23:59 07:59 Intake Total 360 / 360 360 / 360 0 / 0 Output Total 500 / 500 250 / 250 200 / 200 Balance -140 / -140 110 / 110 -200 / -200 Weight 58.7 kg Consult Discharge Plan - Plan Referrals: Marjorie Robles [Primary Care Provider] -
[2018-02-16] MEDS ORDERED: Aminoglycoside Consult 1 EACH MC ONE (08:58)
[2018-02-16] MEDS: Furosemide 20 MG/2 ML VIAL IVP SCH (09:09)
[2018-02-16] MEDS: Aspirin Enteric Coated 81 MG Tablet PO SCH (09:10)
[2018-02-16] MEDS: Metoprolol XL (24 HR) Succ 25 MG TAB.ER.24H PO SCH (09:10)
[2018-02-16] MEDS: *HR* HYDROcodone/Acet 5/325 mg TABLET PO PRN ×2 (09:10→15:43)
[2018-02-16] MEDS: *HR* Enoxaparin 60 MG/0.6 ML SYRINGE SQ SCH (09:11)
[2018-02-16] MEDS: Cefepime HCl 1,000 MG in Water for inj. (sterile) 20 ML 10 ML IVP SCH (09:12)
--- NOTE | 2018-02-16 13:53 | Palliative Progress Note ---
Date of Encounter: 02/16/18 Time of Encounter: 07:50 - Assessment and plan (1) CKD (chronic kidney disease) stage 3, GFR 30-59 ml/min Current Visit: No Status: Acute Assessment and plan: Patient still making urine, BUN and creatinine still elevated, continue to watch plan per hospitalist and ICU team. Stable at this time. (2) Goals of care, counseling/discussion Current Visit: Yes Status: Acute Assessment and plan: Patient is DNR CCA, DNI. Her discussion with patient and family specifically patient's daughter who is her new P MPOA patient does wish to have treatment for her conditions, Discussion with patient and family today at approximately 1120. Agents daughter the medical power of agriculture inspector and her were present as well as the patient. In addition patient's primary nurse Camille as well as Deon chery social director all present for the discussion. Patient does wish to have hospice wishes to have a DNR hospice. After a long discussion of what all that would entail I have contacted [facility] to ask for one of the nurses about talked to the family this afternoon. With probable discharge tomorrow. Patient will go home with her with her daughter with [facility]. (3) HCAP (healthcare-associated pneumonia) Current Visit: Yes Status: Acute Assessment and plan: On antibiotics plan per pulmonary. No changes anticipates stopping all medications at time of discharge. (4) Lactic acidosis Current Visit: Yes Status: Resolved Assessment and plan: No new serum lactate today, carbon dioxide in the blood and therefore bicarbonate had normalized. Leave this is no longer an issue as the patient has clinically improved. (5) NSTEMI (non-ST elevated myocardial infarction) Current Visit: Yes Status: Acute Assessment and plan: Patient has opted not to have a cardiac catheterization. Cardiac echo however shows a massive drop in action fraction from 65 around the beginning of the year 225% now. I believe on this basis that it is appropriate for the patient to be in hospice. Reason I will sign a CTI for her. (6) Sepsis Current Visit: Yes Status: Resolved Assessment and plan: Patient's white count is still elevated. Patient has no fever currently. She is not tachycardic however her blood pressure is somewhat on the low side. Is on antibiotics plan per hospitalist and Raghav team. No changes at this time however I do anticipate not sending her out with antibiotics other than oral. Qualifiers: Sepsis type: sepsis due to unspecified organism Qualified Code(s): A41.9 - Sepsis, unspecified organism - Time Spent With Patient Total time spent is greater than 50% in coordination of care (as documented) at patient's floor/unit and/or counseling patient: - Subjective Interval history: Reports breathing okay now, she denies any chest pain currently and she states that she does not wish to have a heart catheter. According to the iron out from the weekend and nurse's notes the patient has been back and forth on this. We will plan to meet with family later today. - Constitutional Vitals: Abnormal lab results WBC 16.1 K/mcL (4.3-11.1) H 02/16/18 03:49 MCHC 31.4 g/dL (31.6-35.5) L 02/16/18 03:49 RDW 18.0 % (11.5-14.5) H 02/16/18 03:49 Neutrophils # 12.7 K/mcL (1.6-8.9) H 02/16/18 03:49 Nucleated RBCs/100 WBC 1.2 /100 WBC (0) H 02/16/18 03:49 PT 14.3 Seconds (9.4-12.1) H 02/11/18 13:09 APTT 73.9 Seconds (26.0-36.0) H D 02/14/18 11:14 BUN 62 mg/dL (8-23) H 02/16/18 03:49 Est GFR ( Amer) 58 (> 60) L 02/16/18 03:49 Est GFR (Non-Af Amer) 48 (> 60) L 02/16/18 03:49 BUN/Creatinine Ratio 57 (6-26) H 02/16/18 03:49 Glucose 109 mg/dL (70-105) H 02/16/18 03:49 Calculated Osmolality 306 (280-300) H 02/16/18 03:49 Lactic Acid 2.3 mmol/L (0.5-2.2) H 02/12/18 08:26 Troponin I 1.85 ng/mL (< 0.04) H* 02/13/18 07:51 Urine Protein 30 mg/dL (Neg-Trace) H 02/11/18 12:05 Urine Microscopic WBC 3-5 per hpf (0-3) H 02/11/18 12:05 Ur Squamous Epith Cells Many per lpf (None-Few) H 02/11/18 12:05 Vancomycin Trough 12 mcg/mL (5-10) H 02/16/18 03:49 General appearance: Present: no acute distress - Respiratory Respiratory exam: Present: decreased breath sounds - Cardiovascular Cardiovascular exam: Present: RRR - GI/Abdominal GI/Abdominal exam: Present: soft. Absent: tenderness - Extremities Exam Extremities exam: Present: pedal edema - Neurological Exam Neurological exam: Present: alert, oriented X3 - Psychiatric Psychiatric exam: Absent: agitated, anxious - Skin Skin exam: Present: dry, warm Palliative Quality Palliative Quality: Screen for Code Status: Yes, Screen for Goals of Care: Yes, Screen for Pain: Yes, If Pain Regimen Started, Initiate Bowel Regimen: NA, Screen for Nausea/Vomitting: Yes Code Status: 02/11/18 16:04 Resuscitation Status: Active [RES] Routine Comment: Resuscitation Status: [id number] - Labs CBC & Chem 7: 02/16/18 03:49 02/16/18 03:49 Labs: Laboratory Results - last 24 hr 02/15/18 02/15/18 02/16/18 17:27 23:57 03:49 WBC 16.1 H RBC 3.99 Hgb 11.6 Hct 37.0 MCV 92.7 MCH 29.1 MCHC 31.4 L RDW 18.0 H Plt Count 192 MPV 11.1 Immature Gran % 2.9 Seg Neutrophils % 78.6 Lymphocytes % 9.2 Monocytes % 8.3 Eosinophils % 0.9 Basophils % 0.1 Neutrophils # 12.7 H Lymphocytes # 1.5 Monocytes # 1.3 Eosinophils # 0.2 Basophils # 0.0 Nucleated RBCs/100 WBC 1.2 H Sodium Potassium Chloride Carbon Dioxide BUN Creatinine Est GFR ( Amer) Est GFR (Non-Af Amer) BUN/Creatinine Ratio Glucose POC Glucose 246 H 99 Calculated Osmolality Calcium Vancomycin Trough 02/16/18 02/16/18 02/16/18 03:49 03:49 05:53 WBC RBC Hgb Hct MCV MCH MCHC RDW Plt Count MPV Immature Gran % Seg Neutrophils % Lymphocytes % Monocytes % Eosinophils % Basophils % Neutrophils # Lymphocytes # Monocytes # Eosinophils # Basophils # Nucleated RBCs/100 WBC Sodium 139 Potassium 3.9 Chloride 107 Carbon Dioxide 23 BUN 62 H Creatinine 1.09 Est GFR ( Amer) 58 L Est GFR (Non-Af Amer) 48 L BUN/Creatinine Ratio 57 H Glucose 109 H POC Glucose 97 Calculated Osmolality 306 H Calcium 8.7 Vancomycin Trough 12 H - ABG Interpretation ABG results: PT/INR, D-dimer PT 14.3 Seconds (9.4-12.1) H 02/11/18 13:09 Consult Discharge Plan - Plan Referrals: Marjorie Robles [Primary Care Provider] -
--- NOTE | 2018-02-16 14:06 | Event Note ---
Date of Encounter: 02/16/18 Time of Encounter: 14:05 - Cardiology Event Note Palliative care progress note reviewed, patient and family have decided against further interventions for medical conditions. Plan for discharge to home with hospice tomorrow. Cardiology will sign off. Please call cardiology for any questions or concerns.
[2018-02-17] MEDS: Insulin LISPRO 300 UNITS/3 ML VIAL SQ SCH ×3 (02:31→12:08)
[2018-02-17] MEDS ORDERED: levoFLOXacin 750 MG TABLET PO SCH (09:00)
[2018-02-17] MEDS: Furosemide 20 MG/2 ML VIAL IVP SCH (09:39)
[2018-02-17] MEDS: *HR* HYDROcodone/Acet 5/325 mg TABLET PO PRN (09:39)
[2018-02-17] MEDS: Aspirin Enteric Coated 81 MG Tablet PO SCH (09:39)
[2018-02-17] MEDS: Metoprolol XL (24 HR) Succ 25 MG TAB.ER.24H PO SCH (09:39)
[2018-02-17] MEDS: *HR* Enoxaparin 60 MG/0.6 ML SYRINGE SQ SCH (09:40)
--- NOTE | 2018-02-17 09:45 | Discharge Summary ---
Date of Encounter: 02/17/18 Time of Encounter: 09:43 - Discharge Diagnosis (1) NSTEMI (non-ST elevated myocardial infarction) Priority: Secondary Status: Resolved (2) Acute exacerbation of CHF (congestive heart failure) Priority: Secondary Status: Acute Qualifiers: Heart failure type: systolic Qualified Code(s): I50.23 - Acute on chronic systolic (congestive) heart failure (3) Lactic acidosis Priority: Secondary Status: Acute (4) HCAP (healthcare-associated pneumonia) Priority: Primary Status: Resolved (5) Sepsis Priority: Primary Status: Resolved Qualifiers: Sepsis type: sepsis due to unspecified organism Qualified Code(s): A41.9 - Sepsis, unspecified organism (6) Acute respiratory failure Priority: Secondary Status: Resolved Qualifiers: Respiratory failure complication: unspecified whether with hypoxia or hypercapnia Qualified Code(s): J96.00 - Acute respiratory failure, unspecified whether with hypoxia or hypercapnia (7) Goals of care, counseling/discussion Priority: Secondary Status: Acute Hospital course: Ms. Valencia is a 88 year old female with a prior medical history of CVA roughly 1 month ago, CAD status post stent roughly 10 years ago, diabetes who presented to the emergency department on 02/11/18 with a chief complaint of dyspnea. Symptoms progressing over the last 2-3 days. She was just recently discharged from a detention facility after rehabilitation from her stroke. She was noted to be mildly tachycardic and hypotensive upon arrival. Chest x-ray demonstrates pulmonary edema. patient waas admitted on 02/11 for HCAP, sepsis NSTEMI, acute on chronic respiratory failure from CHF exacerbation. Patient had TTE this admission with LVEF 25%, severe global and segmental LV systoli dysfunction, bi-atrial enlargement, moderate AR, moderate MR, mild-moderate TR, mild-moderate PH, normal RV size, mild-moderate reduced function. She also refused LHC. palliative was consulted, patient and her family decided going home with hospice. She has 6 days of IV ATB, will discharge on oral ATB for total of 14 days for HCAP, ;continue all home medications. Dr Sanchez took care of palliative meds. Discharge discussed with: patient, family Time spent discussing smoking cessation with patient: 3 to 10 minutes - Time Spent with Patient Total time spent providing and/or coordinating discharge services: Less than 30 minutes - Discharge Medications Prescriptions: Doxycycline 100 mg PO BID 8 Days #16 capsule HYDROcodone/Acet 5/325 mg [[place] 5-325 mg] 1 tab PO Q4H PRN 5 Days #20 tab PRN Reason: pain/sob levoFLOXacin [Levaquin] 750 mg PO Q48H 8 Days #4 tablet LORazepam Oral Conc [Ativan Oral Conc] 1 mg PO Q4H 7 Days #30 mls Morphine Oral CONC [Roxanol] 0.25 ml SL Q4H PRN 5 Days #30 ml PRN Reason: sob or pain Sennosides/Docusate Sodium [Senna-S Tablet] 1 each PO BID #10 tablet Home Medications: Aspirin [Lo-Dose Aspirin EC] 81 mg PO DAILY 12/29/17 [History] Atorvastatin Calcium [Lipitor] 20 mg PO QPM 12/29/17 [History] Clopidogrel [Plavix] 75 mg PO DAILY 12/29/17 [History] Ferrous Sulfate [Iron] 325 mg PO DAILY 12/29/17 [History] Levothyroxine Sodium [Levoxyl] 50 mcg PO DAILY 12/29/17 [History] Metoprolol [Lopressor] 25 mg PO BID 12/29/17 [History] Omeprazole [PriLOSEC] 40 mg PO DAILY 12/29/17 [History] Oxybutynin [Ditropan] 5 mg PO DAILY 12/29/17 [History] Doxycycline 100 mg PO BID 8 Days #16 capsule 02/17/18 [Rx] HYDROcodone/Acet 5/325 mg [[place] 5-325 mg] 1 tab PO Q4H PRN 5 Days #20 tab 02/17 [Rx] LORazepam Oral Conc [Ativan Oral Conc] 1 mg PO Q4H 7 Days #30 mls 02/17/18 [Rx] Morphine Oral CONC [Roxanol] 0.25 ml SL Q4H PRN 5 Days #30 ml 02/17/18 [Rx] Sennosides/Docusate Sodium [Senna-S Tablet] 1 each PO BID #10 tablet 02/17/18 [ Rx] levoFLOXacin [Levaquin] 750 mg PO Q48H 8 Days #4 tablet 02/17/18 [Rx] Allergies/Adverse Reactions: 3 Allergy/AdvReac Type Severity Reaction Status Date / Time Penicillins [PCN] Allergy Rash Verified 12/29/17 10:56 Date of admission: 02/11/18 21:43 Primary care physician: Marjorie Robles Discharging clinician: Pallavi Clement Anticipated date of discharge: 02/17/18 - Constitutional Vitals: Temp Pulse Resp BP Pulse Ox 97.8 F 93 22 109/71 97 02/17/18 08:34 02/17/18 08:34 02/17/18 08:34 02/17/18 09:33 02/17/18 08:34 General appearance: Present: A&O X 3, pleasant - Head Head exam: Present: normocephalic - Eye Eye exam: Present: PERRL - ENT ENT exam: Present: normal exam, normal external ear exam - Respiratory Respiratory exam: Present: prolonged expiratory phase, respiratory distress, rhonchi - Cardiovascular Cardiovascular exam: Present: RRR - GI/Abdominal GI/Abdominal exam: Present: soft, no peritoneal signs - Back Exam Back exam: Present: normal inspection - Neurological Exam Neurological exam: Present: alert, CN II-XII intact, oriented X3 - Psychiatric Psychiatric exam: Present: anxious, normal mood - Skin Skin exam: Present: warm - Patient Status Disposition: Hospice - Home Condition: Serious Functional capacity at discharge: bed bound Overall status at discharge: patient is not back to baseline - Discharge Instructions Follow Up With: Marjorie Robles [Primary Care Provider] - - VTE Documentation of Mechanical Device: Intermittent pneumatic compression device
--- NOTE | 2018-02-17 10:12 | Palliative Progress Note ---
Date of Encounter: 02/17/18 Time of Encounter: 09:05 - Assessment and plan (1) CKD (chronic kidney disease) stage 3, GFR 30-59 ml/min Current Visit: No Status: Acute Assessment and plan: Patient still making urine, BUN and creatinine still elevated, she will be going out of hospice today.. Stable at this time. (2) Goals of care, counseling/discussion Current Visit: Yes Status: Acute Assessment and plan: Patient is DNR COMFORT CARE ONLY THE PATIENT IS GOING OUT WITH HOSPICE., Hospice will be here to admit the patient sometime before 11 AM. (3) HCAP (healthcare-associated pneumonia) Current Visit: Yes Status: Resolved Assessment and plan: antibiotics appear to be compleated. (4) NSTEMI (non-ST elevated myocardial infarction) Current Visit: Yes Status: Resolved (5) Sepsis Current Visit: Yes Status: Resolved Assessment and plan: l.pt being discharged this morning with hospice. Qualifiers: Sepsis type: sepsis due to unspecified organism Qualified Code(s): A41.9 - Sepsis, unspecified organism - Time Spent With Patient Total time spent is greater than 50% in coordination of care (as documented) at patient's floor/unit and/or counseling patient: - Subjective Interval history: Reports breathing okay looking forward to going home does complain of some mild abdominal pain.. - Constitutional Vitals: Abnormal lab results WBC 16.1 K/mcL (4.3-11.1) H 02/16/18 03:49 MCHC 31.4 g/dL (31.6-35.5) L 02/16/18 03:49 RDW 18.0 % (11.5-14.5) H 02/16/18 03:49 Neutrophils # 12.7 K/mcL (1.6-8.9) H 02/16/18 03:49 Nucleated RBCs/100 WBC 1.2 /100 WBC (0) H 02/16/18 03:49 PT 14.3 Seconds (9.4-12.1) H 02/11/18 13:09 APTT 73.9 Seconds (26.0-36.0) H D 02/14/18 11:14 BUN 62 mg/dL (8-23) H 02/16/18 03:49 Est GFR ( Amer) 58 (> 60) L 02/16/18 03:49 Est GFR (Non-Af Amer) 48 (> 60) L 02/16/18 03:49 BUN/Creatinine Ratio 57 (6-26) H 02/16/18 03:49 Glucose 109 mg/dL (70-105) H 02/16/18 03:49 Calculated Osmolality 306 (280-300) H 02/16/18 03:49 Lactic Acid 2.3 mmol/L (0.5-2.2) H 02/12/18 08:26 Troponin I 1.85 ng/mL (< 0.04) H* 02/13/18 07:51 Urine Protein 30 mg/dL (Neg-Trace) H 02/11/18 12:05 Urine Microscopic WBC 3-5 per hpf (0-3) H 02/11/18 12:05 Ur Squamous Epith Cells Many per lpf (None-Few) H 02/11/18 12:05 Vancomycin Trough 12 mcg/mL (5-10) H 02/16/18 03:49 General appearance: Present: no acute distress - Respiratory Respiratory exam: Present: decreased breath sounds - Cardiovascular Cardiovascular exam: Present: RRR - GI/Abdominal GI/Abdominal exam: Present: normal bowel sounds, soft, tenderness (Mildly tender in epigastrium) - Extremities Exam Extremities exam: Absent: tenderness - Neurological Exam Neurological exam: Present: alert - Psychiatric Psychiatric exam: Absent: agitated, anxious - Skin Skin exam: Present: dry, warm Palliative Quality Palliative Quality: Screen for Code Status: Yes, Screen for Goals of Care: Yes, Screen for Pain: Yes, If Pain Regimen Started, Initiate Bowel Regimen: NA, Screen for Nausea/Vomitting: Yes Code Status: 02/11/18 16:04 Resuscitation Status: Active [RES] Routine Comment: Resuscitation Status: [id number] - Labs CBC & Chem 7: 02/16/18 03:49 02/16/18 03:49 - ABG Interpretation ABG results: PT/INR, D-dimer PT 14.3 Seconds (9.4-12.1) H 02/11/18 13:09 Consult Discharge Plan - Plan Referrals: Marjorie Robles [Primary Care Provider] - Prescriptions: Doxycycline 100 mg PO BID 8 Days #16 capsule HYDROcodone/Acet 5/325 mg [[place] 5-325 mg] 1 tab PO Q4H PRN 5 Days #20 tab PRN Reason: pain/sob levoFLOXacin [Levaquin] 750 mg PO Q48H 8 Days #4 tablet LORazepam Oral Conc [Ativan Oral Conc] 1 mg PO Q4H 7 Days #30 mls Morphine Oral CONC [Roxanol] 0.25 ml SL Q4H PRN 5 Days #30 ml PRN Reason: sob or pain Sennosides/Docusate Sodium [Senna-S Tablet] 1 each PO BID #10 tablet
--- NOTE | 2018-02-17 10:19 | Event Note ---
Date of Encounter: 02/17/18 Time of Encounter: 10:17 Hospice medical social consultant certification of terminal illness: Hospice benefit. Start: 02/17/2018 Hospice benefit. In: +90 days Palliative performance scale: 30% History: Patient with a history of peripheral vascular disease including a CVA as well as cardiovascular disease. Massive drop in her ejection fraction since the beginning of the year suffering a myocardial infarction. Ejection fraction is dropped from 65% and a 25% in just 4 months. Patient continues to have trouble with being short of breath she is to have no further aggressive care. She declined having cardiac catheterization and due to the degree of progression of her loss of ejection fraction I believe that These findings support a life expectancy of 6 months or less. I attest that I have compose the above narrative based on my review of the patient's medical records, and or on my examination of the patient. Teddy Castaneda M.D. Associate medical insurance coding specialist. [employer]
[2018-02-17 12:05] VITALS: BP 96/58
--- NOTE | 2018-02-20 08:32 | Electrocardiograph Report ---
[place] [id number] Test Date: 2018-02-13 Pat Name: Ruthie Valencia Department: 109 Room: 2A Gender: F Classified Ad Taker: : [id number] Requested By: Anjel Bell Order Number: [id number] Reading MD: Monroe Wang Measurements Intervals [place] Rate: 68 P: 55 NC: 134 QRS: -8 QRSD: 138 T: 150 QT: 458 QTc: 476 Interpretive Statements SINUS RHYTHM INTRAVENTRICULAR CONDUCTION DELAY POSSIBLE ANTERIOR MYOCARDIAL INFARCTION, PROBABLY OLD Electronically Signed On 02-20-2018 8:31:23 EDT by Monroe Wang
== END 2018-02-17 13:20 | disposition hospice, home (50) | DRG 871 ==
LOC: EMEROO 10:42 → ICNU 21:43 → SUATTDRO 21:43 → ICNU 21:48 → 2ANU 02-16 16:44
PROVIDERS: ADMIT Internal Medicine; ATTEND Hospitalist